=== PATIENT | female | born 1975 ===

== ENCOUNTER 2018-07-05 12:35 | Emergency (ER) | payer OTHER ==
[2018-07-05 13:03] LABS: #Eosinphils 0.3 thou/uL (0.0-0.7); #Lymphocytes 1.8 thou/uL (1.20-3.40); #Monocytes 0.3 thou/uL (0.11-0.59); #Neutrophils 1.8 thou/uL (1.40-6.50); %Basophils 1.2 % (0.0-1.0); %Eosinophils 6.2 % (0.0-10.0); %Lymphocytes 44.3 % (21.0-51.0); %Neutrophils 42.4 % (42.0-75.0); Hemoglobin 7.6 g/dL (12.0-16.0); Mean Corpuscular HGB CONC 32.6 g/dL (32.0-36.0); Mean Corpuscular Hemoglobin 28.4 pg (27.0-31.0); Mean Corpuscular Volume 87.2 fL (78.0-98.0); Mean Platelet Volume 7.3 fL (7.4-10.4); Platelet Count 321 thou/uL (130-400); RBC Distribution Width 14.8 % (11.5-14.5); Red Blood Cell (RBC) Count 2.68 mill/uL (4.20-5.40); White Blood Cell (WBC) Count 4.2 thou/uL (4.8-10.8)
[2018-07-05 13:25] LABS: ALT (SGPT) 41 U/L (8-55); AST (SGOT) 31 U/L (5-34); Alkaline Phosphatase 69 U/L (40-150); Anion Gap 12 mmol/L (10-20); BUN (Urea Nitrogen) 7 mg/dL (7.0-18.7); Bilirubin, Total 0.3 mg/dL (0.2-1.2); Calc. Creatinine Clearance 0 mL/min (70-130); Calcium 8.8 mg/dL (7.8-10.44); Carbon Dioxide 24 mmol/L (22-29); Chloride 109 mmol/L (98-107); Estimated GFR-MDRD 80; Globulin 2.9 g/dL (2.4-3.5); Glucose 78 mg/dL (70-105); Potassium 4.1 mmol/L (3.5-5.1); Protein, Total 6.9 g/dL (6.0-8.3); Sodium 141 mmol/L (136-145)
[2018-07-05 13:35] LABS: BHCG - Serum Negative (NEGATIVE); Pregs Control Background? CLEAR/WHITE (CLR/WHITE); Pregs Control Bar Appear? YES (CONTROL BAR)
--- NOTE | 2018-07-05 13:55 | CT ---
CT BRAIN WITHOUT CONTRAST: History: Altered mental status, seizures. FINDINGS: No evidence of infarct, hemorrhage, midline shift, or abnormal extraaxial fluid collections are seen. Ventricular size is normal and evaluation is patent. The bony calvarium is intact. There is mucosal disease in the paranasal sinuses. IMPRESSION: No CT evidence of acute intracranial process. POS: OFF
[2018-07-05 14:16] LABS: Pregnancy Test - Urine (BHCG) Negative (Negative); Pregu Control Background? CLEAR/WHITE (CLR/WHITE); Pregu Control Bar Appear? YES (CONTROL BAR); Specific Gravity 1.006 (1.002-1.036)
[2018-07-05 14:20] LABS: Carbamazepine-Tegretol 7.6 ug/mL (4.0-12.0)
[2018-07-05] MEDS ORDERED: Ketorolac Tromethamine 30 MG/ML VIAL ONE (14:34)
== END 2018-07-05 15:03 | disposition home or self-care (01) ==
LOC: ERS 12:35
DX: R56.9 Unspecified convulsions (principal); D64.9 Anemia, unspecified; N93.8 Other specified abnormal uterine and vaginal bleeding; I10 Essential (primary) hypertension; Z79.899 Other long term (current) drug therapy; Z79.82 Long term (current) use of aspirin
CPT/HCPCS: 36415; 70450; 80053; 80156; 81025; 84703; 85025; 86850; 86900; 86901; 96374; J1885

== ENCOUNTER 2018-09-23 15:56 | Inpatient (IN) | payer OTHER ==
[~2018-09-23 15:56] MED LIST: Iopamidol 370 76% 100 ML VIAL ONE
[2018-09-23 16:58] LABS: #Eosinphils 0.1 thou/uL (0.0-0.7); #Lymphocytes 1.7 thou/uL (1.20-3.40); #Monocytes 0.6 thou/uL (0.11-0.59); %Basophils 0.4 % (0.0-1.0); %Lymphocytes 30.7 % (21.0-51.0); %Monocytes 11.7 % (0.0-10.0); %Neutrophils 55.2 % (42.0-75.0); Hemoglobin 12.6 g/dL (12.0-16.0); Mean Corpuscular HGB CONC 29.9 g/dL (32.0-36.0); Mean Corpuscular Hemoglobin 26.3 pg (27.0-31.0); Mean Corpuscular Volume 88.1 fL (78.0-98.0); Mean Platelet Volume 7.1 fL (7.4-10.4); Platelet Count 165 thou/uL (130-400); RBC Distribution Width 25.4 % (11.5-14.5); Red Blood Cell (RBC) Count 4.78 mill/uL (4.20-5.40); White Blood Cell (WBC) Count 5.5 thou/uL (4.8-10.8)
[2018-09-23 17:00] LABS: INR-International Normal Ratio 1.7; PTT 34.8 SEC (22.9-36.1); Prothrombin Time 19.8 SEC (12.0-14.7)
[2018-09-23 17:15] LABS: ALT (SGPT) 611 U/L (8-55); AST (SGOT) 453 U/L (5-34); Albumin 3.4 g/dL (3.5-5.0); Alkaline Phosphatase 196 U/L (40-150); Anion Gap 11 mmol/L (10-20); Anisocytosis MODERATE=16-30 cells (100X) (0-5/hpf); BUN (Urea Nitrogen) 5 mg/dL (7.0-18.7); Bilirubin, Total 5.3 mg/dL (0.2-1.2); CK (CPK) 114 U/L (29-168); Calc. Creatinine Clearance 0 mL/min (70-130); Calcium 8.9 mg/dL (7.8-10.44); Carbon Dioxide 27 mmol/L (22-29); Chloride 104 mmol/L (98-107); Estimated GFR-MDRD 78; Globulin 3.6 g/dL (2.4-3.5); Glucose 97 mg/dL (70-105); Hypochromia SLIGHT = 6-15 cells (100X) (0-5/hpf); Lipase 58 U/L (8-78); MDiff Complete? YES; Ovalocytes SLIGHT = 2-5 cells (100X) (0-1/hpf); PLT Morphology Comment Appears Adequate; Poikilocytosis SLIGHT = 6-15 cells (100X) (0-5/hpf); Potassium 3.8 mmol/L (3.5-5.1); Schistocytes SLIGHT = 2-5 cells (100X) (0-1/hpf); Sodium 138 mmol/L (136-145); Target Cells SLIGHT = 2-5 cells (100X) (0-1/hpf)
[2018-09-23 17:19] LABS: ALT (SGPT) 587 U/L (8-55); AST (SGOT) 459 U/L (5-34); Albumin 3.4 g/dL (3.5-5.0); Alkaline Phosphatase 197 U/L (40-150); Bilirubin, Direct 3.3 mg/dL (0.1-0.3); Bilirubin, Total 5.2 mg/dL (0.2-1.2)
[2018-09-23 17:29] LABS: Bilirubin Moderate (Negative); Blood, Urine Negative (Negative); Clarity CLOUDY (Clear); Glucose, Urine (Dipstick) 100 mg/dL (Negative); Leukocyte Small (Negative); Nitrite Negative (Negative); Protein, Urine (Dipstick) Negative (Neg-Trace); Specific Gravity, Urine 1.025 (1.002-1.036)
[2018-09-23 17:35] LABS: Yeast-AUWi Flag 56.1 (0-25.0)
[2018-09-23 17:45] LABS: Hyaline Casts/LPF 0-3 HYALINE CAST LPF (0-3 Hyaline); Other Casts/LPF None Seen LPF (0-3 Hyaline); RBC/HPF 0-3 HPF (0-3)
[2018-09-23 17:46] LABS: Bacteria/HPF Rare-Few HPF (None Seen)
[2018-09-23] MEDS ORDERED: Ketorolac Tromethamine 30 MG/ML VIAL ONE (20:15)
--- NOTE | 2018-09-23 20:33 | CT ---
CONTRAST ENHANCED CT IMAGES ABDOMEN AND PELVIS 09/23/18 HISTORY: Elevated liver enzymes. Abdominal pain. Contrast enhanced CT images of the abdomen and pelvis is obtained. Unfortunately, oral contrast was n ot given. This does decrease the sensitivity for detection of pathology. The lung bases are unremarkable. No evidence of free intraperitoneal air seen. A small amount of ascites is seen. The gallbladder has been surgically removed. The liver and spleen are unremarkable. The pancreas is unremarkable. Adrenal glands and kidneys are unremarkable. No dilated loops of small bowel or colon seen. A normal appendix is visualized. A small amount of free pelvic fluid also seen. IMPRESSION: Small amount of intraperitoneal fluid. POS: [facility]
[2018-09-23] MEDS ORDERED: Ondansetron ODT 4 MG TAB PO PRN (22:06)
[2018-09-23] MEDS ORDERED: hydrALAZINE 20 MG/ML VIAL SLOW IVP PRN (22:06)
[2018-09-23] MEDS ORDERED: Ondansetron PF 4 MG/2 ML Vial IVP PRN (22:06)
[2018-09-23] MEDS ORDERED: cloNIDine 0.1 MG TAB PO PRN (22:06)
[2018-09-23 22:50] VITALS: BMI 30.9
[2018-09-23] MEDS: Sodium Chloride 0.9% 1,000 ML IV SCH (23:41)
--- NOTE | 2018-09-24 02:05 | HP ---
DATE OF ADMISSION: 09/23/2018 PRIMARY CARE PHYSICIAN: [facility]. CHIEF COMPLAINT: Fatigue, weakness, and elevated liver tests. HISTORY OF PRESENT ILLNESS: This is a 42-year-old female who presents to [facility] Emergency Department in transfer from the [facility] complaining of generalized weakness, nause a, abdominal pain, and jaundice over the last 3 weeks. Patient noted intermittent symptoms of nausea with some emesis, vague abdominal pain, and worsening fatigue. [facility] noting transaminitis. Patient states she was taking Tegretol for history of seizure s. At which point, this was being held in an attempt to stabilize her liver function test. Patient states she has also had other medications held for approximately 1 week to identify the underlying cu lprit to her transaminitis. Patient denies any prior history of liver disease, hepatitis, or exposur e history. Patient denies any recent surgical intervention, history of gallstones, or cholecystitis. Patient states her bowel movements have been regular without dysuria. Patient denies any specific fever, chills, recent trauma, or injury. Patient denies any history of alcohol abuse. In the emerge ncy room, patient underwent metabolic screening showing evidence of transaminitis with AST ranging in the 450s and ALT in the 600s. Patient was also noted with elevated ammonia level of 100. Patient r eceived normal saline x1 liter in addition to lactulose 30 mL x1 dose. Patient was treated with lact ulose 30 mL x1 dose. PAST MEDICAL HISTORY: 1. Hyperlipidemia. 2. Seizure disorder. 3. Astigmatism. 4. Hypertension. 5. Irritable bowel syndrome. 6. Abnormal uterine bleeding. 7. Iron-deficiency anemia. PAST SURGICAL HISTORY: Status post bladder stone ablation with laser. CURRENT MEDICATIONS: 1. Amlodipine 10 mg 1 tab p.o. daily. 2. Aspirin 81 mg 1 tab p.o. daily. 3. Lipitor 10 mg p.o. daily. 4. Ferrous gluconate 324 mg 1 tab p.o. t.i.d. 5. Lisinopril 20 mg 1 tab p.o. daily. 6. Tegretol, dose unknown. ALLERGIES: No known drug allergies. FAMILY HISTORY: No inheritable diseases per patient report. SOCIAL HISTORY: Patient currently incarcerated in jail. No current alcohol, tobacco, or illicit d rug use. REVIEW OF SYSTEMS: The following complete review of systems was otherwise negative, except as stated per HPI: Constitutional: Weight loss or gain, ability to conduct usual activities. Skin: Rash, i tching. Eyes: Double vision, pain. ENT/Mouth: Nose bleeding, neck stiffness, pain, tenderness. C ardiovascular: Palpitations, dyspnea on exertion, orthopnea. Respiratory: Shortness of breath, whe ezing, cough, hemoptysis, fever, or night sweats. Gastrointestinal: Poor appetite, abdominal pain, heartburn, nausea, vomiting, constipation, or diarrhea. Genitourinary: Urgency, frequency, dysuria, nocturia. Musculoskeletal: Pain, swelling. Neurologic/Psychiatric: Anxiety, depression. Allergy /Immunologic: Skin rash, bleeding tendency. PHYSICAL EXAMINATION: VITAL SIGNS: On admission blood pressure 137/87, pulse 67, respiratory rate 18, temperature 98.2 deg madhu Fahrenheit, O2 saturation 99% on room air. GENERAL APPEARANCE: This is a 42-year-old female, alert and oriented x3, pleasant, responsi ve, in no acute distress. HEENT: Pupils are equal, round, and reactive to light and accommodation. Extraocular muscles are in tact. Bilateral scleral icterus noted. Nares patent. OP is clear. Teeth in fair repair. NECK: Supple, no cervical adenopathy, no thyromegaly, no carotid bruits, no JVD appreciated. Cervic al spine with full active and passive range of motion. No meningeal signs appreciated. CHEST: Lungs are clear to auscultation bilaterally. CARDIOVASCULAR: S1, S2, without noted murmur, rub, or gallop. ABDOMEN: Rounded with mild tenderness to palpation in the right upper quadrant. No rebound or guard ing noted. No palpable mass. EXTREMITIES: Warm and dry with fair turgor. No clubbing, cyanosis, or asymmetric edema appreciated. Pulses palpable distally at the dorsalis pedis, posterior tibial, and popliteal arteries bilaterall y. Capillary refill less than 2 seconds. NEUROLOGIC: No asterixis. Cranial nerves II through XII are grossly intact. No focal or lateralizi ng signs appreciated. PERTINENT LABORATORY DATA AND X-RAY FINDINGS: Basic metabolic profile within normal limits. Calcium 8.9, total bilirubin 5.3, AST 53, ALT 611, alkaline phosphatase 196. Serum ammonia level 100, total CK 114. Albumin 3.4, lipase 58. CBC showed a white blood cell count of 5.5, hemoglobin 12.6, hemat ocrit 42, platelet count 165 with normal differential. PT 19.8, INR 1.7, PTT 34.8. Urinalysis posit mariam for bilirubin, small leukocyte esterase. Total cholesterol 171, triglycerides 90, HDL 38, LDL 11 5. Serum iron level 158. TIBC 352, percent saturation 45. Serum ferritin 473. Free T4 of 0.78. T SH 2.30. Hemoglobin A1c 5.1 on 09/22/2018. ASSESSMENT AND PLAN: 1. Transaminitis. Patient will be admitted to the medical floor. Suspect iatrogenic given patient' s history of Tegretol use and fluids with statins. Avoid hepatotoxic agents. Check hepatitis A, B, and C panel. Consult GI service in the a.m. for any further recommendations. Consider right upper q uadrant ultrasound imaging if LFTs continue to trend upward. 2. Hepatic encephalopathy. Mild. Continue lactulose 20 grams p.o. q.i.d. Repeat ammonia level in the a.m. 3. Abdominal pain. Suspect secondary to #1. Continue supportive management and see management plan as outlined in #1. Pain control as clinically indicated. 4. Hypertension. Resume home antihypertensive regimen and monitor serial blood pressures. 5. Seizure disorder. We will need to clarify extent of seizure disorder on previous Tegretol. Jacqueline ent may need additional titration or transition to different agent for long-term management. 6. Prophylaxis. Sequential compression devices while in bed. Pepcid 20 mg p.o. b.i.d. 7. Code status is FULL. Surrogate medical decision maker is [facility].
[2018-09-24 05:08] LABS: ALT (SGPT) 444 U/L (8-55); AST (SGOT) 338 U/L (5-34); Albumin 2.6 g/dL (3.5-5.0); Alkaline Phosphatase 159 U/L (40-150); Anion Gap 7 mmol/L (10-20); BUN (Urea Nitrogen) 6 mg/dL (7.0-18.7); Calc. Creatinine Clearance 132 mL/min (70-130); Calcium 8.2 mg/dL (7.8-10.44); Carbon Dioxide 28 mmol/L (22-29); Chloride 107 mmol/L (98-107); Estimated GFR-MDRD Greater than 90; Globulin 2.8 g/dL (2.4-3.5); Glucose 68 mg/dL (70-105); Potassium 3.7 mmol/L (3.5-5.1); Protein, Total 5.4 g/dL (6.0-8.3); Sodium 138 mmol/L (136-145)
[2018-09-24 05:29] LABS: HBCM Index 0.09 S/CO (0-0.79); HBSAg Index 0.31 S/CO (0-0.99); Hep A IgM AB Non-Reactive (NonReactive); Hep A IgM S/CO 0.17 S/CO (0-0.79); Hep B Surf Ag Non-Reactive S/CO (NonReactive); Hep C IgG Ab Non-Reactive (NonReactive); Hep C Index 0.17 S/CO (0-0.79); Hepatitis B Core IgM Abs Non-Reactive (NonReactive)
[2018-09-24 05:40] LABS: Band 2 % (5-11); Eosinophils 2 % (0-10); Hemoglobin 10.9 g/dL (12.0-16.0); Lymphocytes 33 % (21-51); MDiff Complete? YES; Mean Corpuscular Volume 87.1 fL (78.0-98.0); Mean Platelet Volume 6.2 fL (7.4-10.4); Monocytes 11 % (0-10); Neutrophil 51 % (42-75); Ovalocytes SLIGHT = 2-5 cells (100X) (0-1/hpf); PLT Morphology Comment Appears Adequate; Platelet Count 133 thou/uL (130-400); RBC Distribution Width 25.3 % (11.5-14.5); Red Blood Cell (RBC) Count 4.03 mill/uL (4.20-5.40); Target Cells SLIGHT = 2-5 cells (100X) (0-1/hpf); White Blood Cell (WBC) Count 4.6 thou/uL (4.8-10.8)
[2018-09-24] MEDS: Sodium Chloride 0.9% 1,000 ML IV SCH ×3 (08:31→19:54)
[2018-09-24] MEDS: Famotidine 20 MG TAB PO SCH ×2 (08:32→19:48)
--- NOTE | 2018-09-24 12:33 | CON ---
DATE OF CONSULTATION: 09/24/2018 REASON FOR CONSULTATION: Elevated LFTs. REQUESTING PHYSICIAN: Dr. Mckay. HISTORY OF PRESENT ILLNESS: Ms. Briana Galvan is a 42-year-old woman who is incarcerated. She was sent from [facility] for persistently elevated LFTs as well as symptoms of confusion, nausea, fati magdiel and vague abdominal pain. The patient relates that this has been going on for the past 3 weeks, it all came on fairly suddenly. She denies being on any new medications throughout this time. She d id have a recent flu vaccine and tetanus vaccine just prior to the onset of symptoms. At any rate, s he started having some fatigue, nausea and vague abdominal discomfort and also some episodes of confu marck, mental cloudiness and slurring of speech. At her facility, her LFTs were noted to be elevated. Several of her medications have been held in the past few weeks including her statin and her amlodi pine and then finally her Tegretol. Despite this, LFTs have remained elevated and she has remained s ymptomatic. She denies any prior history of any liver disease. She does relate that she had a laser treatment of some stones, which she thinks were in her gallbladder over 20 years ago, but she is ashly rly certain that her gallbladder was not removed. She has no current or prior history of alcohol abu se. No current or prior history of drug abuse. There has been no fever, no change of bowel habits w ith these symptoms. Upon presentation, her INR was found to be elevated to 1.7, total bilirubin to 5 .3, AST 453, ALT 611, alkaline phosphatase 196 and ammonia level was elevated to 100. Lipase is norm al. CBC and kidney function are essentially unremarkable. A CT of the abdomen and pelvis demonstrat ed a small amount of intraperitoneal fluid, but otherwise normal liver, spleen and pancreas, normal b owel and absent gallbladder. The patient is currently feeling okay, just sleepy. She was started on lactulose 20 grams q.i.d. She denies any acetaminophen use and I do not see any on her medication l ist. REVIEW OF SYSTEMS: Full review of systems including constitutional, head, eyes, ears, nose, throat, GI, , cardiovascular, respiratory, musculoskeletal, and neurologic systems is negative except as no yessica in the HPI. PAST MEDICAL HISTORY: Hyperlipidemia, hypertension, IBS, seizure disorder, abnormal uterine bleeding , iron deficiency anemia, "gallstones treated with the laser", patient does not recall having had a c holecystectomy. ALLERGIES: No known drug allergies. OUTPATIENT MEDICATIONS: Tegretol, lisinopril, ferrous gluconate, Lipitor, aspirin 81 mg daily, amlod ipine. FAMILY HISTORY: Negative for liver disease. SOCIAL HISTORY: No smoking, alcohol, or drug use. She is currently incarcerated. PHYSICAL EXAMINATION: VITAL SIGNS: Temperature 97.9, pulse 63, blood pressure 135/86, 96% oxygen saturation on room air. GENERAL: A 42-year-old woman lying in bed comfortably, in no acute distress. She is somnolent, but easily arousable and can give detailed answers to questions. SKIN: Mild jaundice, no rash visible or palpable. EYES: Mild scleral icterus. Extraocular movements intact. ENT: Mucous membranes moist, no oral lesions. LYMPH: No submandibular, supraclavicular lymphadenopathy. THYROID: Nontender to palpation. HEART: Regular rate and rhythm. LUNGS: Clear to auscultation bilaterally. ABDOMEN: Bowel sounds present, soft, some mild tenderness to palpation of the left upper quadrant, b ut no guarding or rebound tenderness. EXTREMITIES: No peripheral edema. VESSELS: Radial pulses 2+ bilaterally. NEUROLOGICAL: Cranial nerves II through XII intact bilaterally. LABORATORY STUDIES: WBC 4.6, hemoglobin 10.9, platelets 133. INR 1.7, BUN 6, creatinine 0.70. Tota l bilirubin initially 5.3, now down to 4.0, alkaline phosphatase initially 196, now down to 159, AST initially 453, now down to 338, ALT initially 611, now down to 444, albumin initially 3.4, now down t o 2.6. Ammonia 100, lipase 58. Urinalysis shows only 4-6 wbc's. Acute hepatitis panel is negative for hepatitis A, hepatitis B surface antigen and hepatitis B core IgM antibody and hepatitis C antibo dy. IMAGING STUDIES: CT of the abdomen and pelvis showed a small amount of intraperitoneal fluid, absent gallbladder, normal appearing liver, spleen and pancreas, normal bowel. ASSESSMENT AND PLAN: 1. Acute hepatitis, over the past 3 weeks. 2. Hepatic encephalopathy, mild. The patient has what appears to be acute hepatitis, primarily with hepatocellular pattern, but significant elevations in total bilirubin and concerningly also elevated INR. This is in the absence of any alcohol or acetaminophen use or drug use that she is reporting. Drug-induced liver injury would certainly lead the differential and I agree with holding her statin and her Tegretol at this time, also need to consider autoimmune hepatitis, hemochromatosis, Mateusz's disease, etc. I have ordered several further labs including CORBY, ASMA, AMA, iron studies, ceruloplas min, hepatitis B DNA and hepatitis C RNA, and acetaminophen level. We will also order urine drug scr een. Trend LFTs and INR daily. If the labs are all unrevealing and LFTs do not improve, the patient may need a liver biopsy. In the meantime, continue with supportive care. Agree with the initiation of lactulose. She can have a regular diet. We will also get an abdominal ultrasound just to assure no biliary dilation, assure absence of the gallbladder. Thank you for the consultation. GI will follow along. Please call any time with questions or concer ns.
[2018-09-24 13:14] LABS: Acetaminophen Less than 6.0 mcg/mL (10.0-30.0); Iron Binding Capacity, Total 308 mcg/dL (265-497)
[2018-09-24 13:15] LABS: Iron Less than 8 ug/dL (50-170)
[2018-09-24 13:22] LABS: MONO NEGATIVE CONTROL ZONE White (Negative) (White); MONO POSITIVE CONTROL Pink Line (Positive) (PINK/RED); Mononucleosis NEGATIVE (NEGATIVE)
[2018-09-24 13:31] LABS: Amphetamine Not Detected (NotDetected); Barbiturates Screen Not Detected (NotDetected); Benzodiazepine Screen Not Detected (NotDetected); Cocaine Metabolite Screen Not Detected (NotDetected); Medtox Control Line Valid? VALID (VALID); Medtox Reader # READER 1; Methadone Not Detected (NotDetected); Methamphetamine Not Detected (NotDetected); Opiate Screen Not Detected (NotDetected); Oxycodone Screen Not Detected (NotDetected); Phencyclidine (PCP) Not Detected (NotDetected); THC/Cannabinoid Screen Not Detected (NotDetected); Tricyclic Screen Not Detected (NotDetected)
--- NOTE | 2018-09-24 13:32 | PDOC.PN ---
- Subjective Encounter Start Date: 09/24/18 Encounter Start Time: 09:40 Pt seen for followup re: abnormal LFTs. Denies chest pain, shortness of breath , fevers or chills. - Objective Resuscitation Status: Resuscitation Status FULL:Full Resuscitation MAR Reviewed: Yes Vital Signs & Weight: Vital Signs (12 hours) Temp Pulse Resp BP Pulse Ox 09/24/18 07:39 97.9 F 63 16 135/86 96 09/24/18 04:00 97.8 F 60 18 136/90 96 Weight Weight 180 lb 6 oz Result Diagrams: 09/24/18 04:37 09/24/18 04:37 Additional Labs: labs reviewed by me Phys Exam - Physical Examination Constitutional: NAD HEENT: moist MMs, oral pharynx no lesions, 2+ tonsils scleral icterus Neck: no nodes, no JVD, supple, full ROM Respiratory: no wheezing, no rales, no rhonchi, clear to auscultation bilateral Cardiovascular: RRR, no rub S1, s2 Gastrointestinal: soft, non-tender, no distention, positive bowel sounds Neurological: moves all 4 limbs Psychiatric: normal affect Deviation from normal: Oriented to person and place, not to time Dx/Plan (1) Abnormal LFTs Code(s): R94.5 - ABNORMAL RESULTS OF LIVER FUNCTION STUDIES Status: Acute Comment: Improving, statin and tegretol on hold (2) Acute hepatitis Code(s): B17.9 - ACUTE VIRAL HEPATITIS, UNSPECIFIED Status: Acute Comment: Etiology unclear, infectious vs. noninfectious, workup initiated, statin and tegretol on hold (3) Hepatic encephalopathy Code(s): K72.90 - HEPATIC FAILURE, UNSPECIFIED WITHOUT COMA Status: Acute Comment: continue lactulose (4) HTN (hypertension) Code(s): I10 - ESSENTIAL (PRIMARY) HYPERTENSION Status: Chronic Comment: controlled (5) Dyslipidemia Code(s): E78.5 - HYPERLIPIDEMIA, UNSPECIFIED Status: Chronic Comment: statin on hold - Plan * . Review of Systems - Review of Systems Constitutional: negative: fever, chills, sweats, weakness, malaise Respiratory: negative: Cough, Shortness of Breath, SOB with Excertion, Pleuritic Pain, Wheezing Cardiovascular: negative: chest pain, palpitations, orthopnea, paroxysmal nocturnal dyspnea, edema, light headedness Gastrointestinal: negative: Nausea, Vomiting, Abdominal Pain, Diarrhea, Constipation, Melena, Hematochezia Genitourinary: negative: Dysuria, Frequency, Incontinence, Hematuria, Retention Skin: Gordon - Medications/Allergies Allergies/Adverse Reactions: Allergies Allergy/AdvReac Type Severity Reaction Status Date / Time No Known Allergies Allergy Verified 09/23/18 22:07 Medications: Current Medications Clonidine (Catapres) 0.1 mg PO Q4H PRN PRN Reason: SBP > ____ Famotidine (Pepcid) 20 mg PO BID [facility] Last Admin: 09/24/18 08:32 Dose: 20 mg Hydralazine HCl (Apresoline) 10 mg SLOW IVP Q4H PRN PRN Reason: SBP > 180 and HR < 70 Sodium Chloride (Normal Saline 0.9%) 1,000 mls @ 100 mls/hr IV .Q10H [facility] Last Admin: 09/24/18 08:31 Dose: 1,000 mls Ibuprofen (Motrin) 400 mg PO Q4H PRN PRN Reason: Fever > 101 Lactulose (Lactulose) 20 gm PO QID [facility] Last Admin: 09/24/18 08:32 Dose: 20 gm Ondansetron HCl (Zofran Odt) 4 mg PO Q6H PRN PRN Reason: Nausea/Vomiting Ondansetron HCl (Zofran) 4 mg IVP Q6H PRN PRN Reason: Nausea/Vomiting Last Admin: 09/24/18 08:32 Dose: 4 mg
--- NOTE | 2018-09-24 16:20 | ULT ---
ABDOMINAL ULTRASOUND: 09/24/18 HISTORY: Elevated LFTs. Real time imaging of the upper abdomen was performed. This shows the gallbladder to have been remove d. Common duct is 4 mm. The visualized liver parenchyma shows no focal abnormalities. It measures 12 to 13 cm in length. Small amount of ascites is incidentally seen. The spleen measures 12.1 cm. the ec hotexture of the liver is heterogeneous. Right and left kidneys are normal in size and not obstructed. The pancreas is partially obscured. The abdominal aorta and IVC regions are unremarkable. IMPRESSION: 1. Heterogeneous echotexture to the liver without focal discrete mass. 2. Postop cholecystectomy change. POS: [facility]
[2018-09-24] MEDS: Ibuprofen 200 MG TAB PO PRN (19:53)
[2018-09-25] MEDS: Sodium Chloride 0.9% 1,000 ML IV SCH ×2 (04:37→17:27)
[2018-09-25 04:41] LABS: #Basophils 0.1 thou/uL (0.0-0.2); #Eosinphils 0.3 thou/uL (0.0-0.7); #Lymphocytes 1.8 thou/uL (1.20-3.40); #Monocytes 0.4 thou/uL (0.11-0.59); %Basophils 1.2 % (0.0-1.0); %Eosinophils 6.6 % (0.0-10.0); %Lymphocytes 39.8 % (21.0-51.0); %Monocytes 8.6 % (0.0-10.0); %Neutrophils 43.8 % (42.0-75.0); Hemoglobin 10.9 g/dL (12.0-16.0); Mean Corpuscular HGB CONC 30.5 g/dL (32.0-36.0); Mean Corpuscular Hemoglobin 26.7 pg (27.0-31.0); Mean Corpuscular Volume 87.4 fL (78.0-98.0); Mean Platelet Volume 8.2 fL (7.4-10.4); Platelet Count 124 thou/uL (130-400); RBC Distribution Width 25.8 % (11.5-14.5); White Blood Cell (WBC) Count 4.5 thou/uL (4.8-10.8)
[2018-09-25 04:44] LABS: INR-International Normal Ratio 2.1; Prothrombin Time 23.2 SEC (12.0-14.7)
[2018-09-25 05:07] LABS: ALT (SGPT) 424 U/L (8-55); AST (SGOT) 343 U/L (5-34); Albumin 2.4 g/dL (3.5-5.0); Alkaline Phosphatase 157 U/L (40-150); Anion Gap 12 mmol/L (10-20); BUN (Urea Nitrogen) 5 mg/dL (7.0-18.7); Bilirubin, Total 4.3 mg/dL (0.2-1.2); Calc. Creatinine Clearance 131 mL/min (70-130); Calcium 7.9 mg/dL (7.8-10.44); Carbon Dioxide 21 mmol/L (22-29); Chloride 110 mmol/L (98-107); Estimated GFR-MDRD 89; Globulin 2.9 g/dL (2.4-3.5); Glucose 65 mg/dL (70-105); Potassium 4.1 mmol/L (3.5-5.1); Protein, Total 5.3 g/dL (6.0-8.3); Sodium 139 mmol/L (136-145)
[2018-09-25] MEDS: Ibuprofen 200 MG TAB PO PRN (07:24)
[2018-09-25] MEDS: Famotidine 20 MG TAB PO SCH ×2 (08:04→20:50)
--- NOTE | 2018-09-25 11:24 | PRG ---
DATE OF SERVICE: 09/25/2018 GI INPATIENT DAILY PROGRESS NOTE SUBJECTIVE: Ms. Galvan is feeling okay. She is tolerating her diet. She does remain fatigued and is still sleeping late this morning. OBJECTIVE: VITAL SIGNS: Temperature 97.8, pulse 59, blood pressure 145/88, 95% oxygen saturation on room air. GENERAL: No acute distress. HEART: Regular rate and rhythm. LUNGS: Clear to auscultation bilaterally. ABDOMEN: Nondistended. Bowel sounds are present. She still expresses tenderness to palpation in th e left upper quadrant. No guarding or rebound tenderness. EXTREMITIES: No peripheral edema. LABORATORY STUDIES: WBC 4.5, hemoglobin 10.9, platelets 124,000. INR went up from 1.7 to 2.1, total bilirubin slightly up to 4.3, alkaline phosphatase stable at 157, AST slightly up to 343, ALT slight ly down to 424, albumin 2.4. Urine drug screen was negative. Serum acetaminophen level was undetect able. Serum total IgG is 1536. Upson screen is negative. Acute viral hepatitis serology is negative . Ferritin level normal at 237.05, TIBC 308. Still awaiting other labs including CORBY, ASMA, antimit ochondrial antibody, alpha 1 antitrypsin level, ceruloplasmin and hepatitis B and C PCR. ASSESSMENT AND PLAN: 1. Acute hepatitis, unclear etiology. 2. Hepatic encephalopathy, mild. We are still awaiting results of further labs still pending. I am a bit concerned that her INR has climbed to 2.1. If the liver tests are not trending down in the ne xt couple of days and labs are otherwise unrevealing, I suspect she will need a liver biopsy and we m ight consider starting her empirically on steroids as well. GI will continue to follow along.
--- NOTE | 2018-09-25 12:18 | PDOC.PN ---
- Subjective Encounter Start Date: 09/25/18 Encounter Start Time: 09:40 Pt seen for followup re: abnormal LFTs. Feels better. Reports itchy rash over chest. - Objective Resuscitation Status: Resuscitation Status FULL:Full Resuscitation MAR Reviewed: Yes Vital Signs & Weight: Vital Signs (12 hours) Temp Pulse Resp BP Pulse Ox 09/25/18 11:27 97.9 F 62 18 158/96 H 94 L 09/25/18 07:36 97.8 F 59 L 16 145/88 H 95 09/25/18 05:39 98 F 55 L 16 126/81 96 Weight Admit Weight 180 lb 6 oz Weight 180 lb 6 oz I&O: 09/24/18 09/25/18 09/26/18 07:59 06:59 06:59 Intake Total 1000 Balance 1000 Result Diagrams: 09/25/18 04:05 09/25/18 04:05 Additional Labs: labs reviewed by me Phys Exam - Physical Examination Constitutional: NAD HEENT: moist MMs, oral pharynx no lesions, 2+ tonsils sclerae icteric Neck: no nodes, no JVD, supple, full ROM Respiratory: no wheezing, no rales, no rhonchi, clear to auscultation bilateral Cardiovascular: RRR, no rub S1, s2 Gastrointestinal: soft, non-tender, no distention, positive bowel sounds Neurological: moves all 4 limbs Psychiatric: normal affect, A&O x 3 Dx/Plan (1) Abnormal LFTs Code(s): R94.5 - ABNORMAL RESULTS OF LIVER FUNCTION STUDIES Status: Acute Comment: stable, statin and tegretol on hold (2) Acute hepatitis Code(s): B17.9 - ACUTE VIRAL HEPATITIS, UNSPECIFIED Status: Acute Comment: workup in progress. (3) Hepatic encephalopathy Code(s): K72.90 - HEPATIC FAILURE, UNSPECIFIED WITHOUT COMA Status: Acute Comment: on lactulose (4) Rash Code(s): R21 - RASH AND OTHER NONSPECIFIC SKIN ERUPTION Status: Acute Comment: probable allergic reaction, start PRN Benadryl (5) Iron deficiency Code(s): E61.1 - IRON DEFICIENCY Status: Acute Comment: start iron replacement (6) HTN (hypertension) Code(s): I10 - ESSENTIAL (PRIMARY) HYPERTENSION Status: Chronic Comment: controlled (7) Dyslipidemia Code(s): E78.5 - HYPERLIPIDEMIA, UNSPECIFIED Status: Chronic Comment: continue to hold statin - Plan * . Review of Systems - Review of Systems Constitutional: negative: fever, chills, sweats, weakness, malaise Cardiovascular: other. negative: chest pain, palpitations, orthopnea, paroxysmal nocturnal dyspnea, edema, light headedness Gastrointestinal: negative: Nausea, Vomiting, Abdominal Pain, Diarrhea, Constipation, Melena, Hematochezia Genitourinary: negative: Dysuria, Frequency, Incontinence, Hematuria, Retention Skin: Rash. negative: Lesions, Gordon, Bruising - Medications/Allergies Allergies/Adverse Reactions: Allergies Allergy/AdvReac Type Severity Reaction Status Date / Time No Known Allergies Allergy Verified 09/23/18 22:07 Medications: Current Medications Clonidine (Catapres) 0.1 mg PO Q4H PRN PRN Reason: SBP > ____ Famotidine (Pepcid) 20 mg PO BID [facility] Last Admin: 09/25/18 08:04 Dose: 20 mg Hydralazine HCl (Apresoline) 10 mg SLOW IVP Q4H PRN PRN Reason: SBP > 180 and HR < 70 Sodium Chloride (Normal Saline 0.9%) 1,000 mls @ 100 mls/hr IV .Q10H [facility] Last Admin: 09/25/18 04:37 Dose: 1,000 mls Ibuprofen (Motrin) 400 mg PO Q4H PRN PRN Reason: Fever > 101 Last Admin: 09/25/18 07:24 Dose: 400 mg Lactulose (Lactulose) 20 gm PO QID [facility] Last Admin: 09/25/18 08:05 Dose: 20 gm Ondansetron HCl (Zofran Odt) 4 mg PO Q6H PRN PRN Reason: Nausea/Vomiting Ondansetron HCl (Zofran) 4 mg IVP Q6H PRN PRN Reason: Nausea/Vomiting Last Admin: 09/24/18 08:32 Dose: 4 mg
[2018-09-25] MEDS ORDERED: diphenhydrAMINE 50 MG/ML VIAL IVP PRN (12:27)
[2018-09-25] MEDS ORDERED: Iron, Sodium Ferric Gluconate 125 MG in Sodium Chloride 0.9% 100 ML IVPB SCH (12:30)
[2018-09-25] MEDS ORDERED: IRON SUCROSE COMPLEX 100 MG/5 ML SLOW IVP SCH (12:30)
[2018-09-25] MEDS: Ferrous Sulfate 325 MG TAB PO SCH (17:26)
[2018-09-26] MEDS: Sodium Chloride 0.9% 1,000 ML IV SCH ×4 (03:34→20:59)
[2018-09-26] MEDS: Ibuprofen 200 MG TAB PO PRN ×3 (03:38→13:29)
[2018-09-26 05:19] LABS: #Basophils 0.1 thou/uL (0.0-0.2); #Eosinphils 0.2 thou/uL (0.0-0.7); #Lymphocytes 1.8 thou/uL (1.20-3.40); #Monocytes 0.6 thou/uL (0.11-0.59); #Neutrophils 2.5 thou/uL (1.40-6.50); %Basophils 1.6 % (0.0-1.0); %Eosinophils 4.7 % (0.0-10.0); %Lymphocytes 35.3 % (21.0-51.0); %Monocytes 10.6 % (0.0-10.0); %Neutrophils 47.9 % (42.0-75.0); Hemoglobin 10.7 g/dL (12.0-16.0); Mean Corpuscular HGB CONC 30.2 g/dL (32.0-36.0); Mean Corpuscular Hemoglobin 26.8 pg (27.0-31.0); Mean Corpuscular Volume 88.5 fL (78.0-98.0); Mean Platelet Volume 7.7 fL (7.4-10.4); Platelet Count 132 thou/uL (130-400); Prothrombin Time 22.8 SEC (12.0-14.7); RBC Distribution Width 26.3 % (11.5-14.5); White Blood Cell (WBC) Count 5.2 thou/uL (4.8-10.8)
[2018-09-26 05:26] LABS: ALT (SGPT) 405 U/L (8-55); AST (SGOT) 316 U/L (5-34); Albumin 2.4 g/dL (3.5-5.0); Alkaline Phosphatase 175 U/L (40-150); Anion Gap 7 mmol/L (10-20); BUN (Urea Nitrogen) 7 mg/dL (7.0-18.7); Bilirubin, Total 4.7 mg/dL (0.2-1.2); Calc. Creatinine Clearance 129 mL/min (70-130); Calcium 7.8 mg/dL (7.8-10.44); Carbon Dioxide 25 mmol/L (22-29); Chloride 109 mmol/L (98-107); Estimated GFR-MDRD 88; Globulin 2.6 g/dL (2.4-3.5); Glucose 90 mg/dL (70-105); Potassium 3.6 mmol/L (3.5-5.1); Sodium 137 mmol/L (136-145)
--- NOTE | 2018-09-26 08:09 | PRG ---
DATE OF SERVICE: 09/26/2018 SUBJECTIVE: Ms. Galvan was able to sleep okay last night. She does complain of continued upper abdom inal pain, no nausea or vomiting. No other complaints. PHYSICAL EXAMINATION: VITAL SIGNS: Temperature 97.8, pulse 55, blood pressure 138/83, 95% oxygen saturation on room air. GENERAL: No acute distress. HEART: Regular rate and rhythm. LUNGS: Clear to auscultation bilaterally. ABDOMEN: Nondistended. Bowel sounds present, soft, tender to palpation in the right upper quadrant and left upper quadrant. No guarding or rebound tenderness. EXTREMITIES: No peripheral edema. LABORATORY STUDIES: WBC 5.2, hemoglobin 10.7, platelets 132. INR is stable at 2.0. Total bilirubin up to 4.7, alkaline phosphatase up to 175, AST marginally down to 316, ALT marginally down to 405. CORBY, SMA, AMA, ceruloplasmin, hepatitis B DNA and hepatitis C RNA are all still pending. ASSESSMENT AND PLAN: 1. Acute hepatitis, unknown etiology. 2. Hepatic encephalopathy, mild, now well controlled. We are still awaiting results of the autoimmune markers and other labs listed. Thankfully, the INR d id not continue to rise from yesterday. Our main concern is for possibility of autoimmune hepatitis. If further labs are unrevealing when they return, and LFTs have not significantly improved by then, we will need to get a liver biopsy. Otherwise, continue current supportive care.
[2018-09-26] MEDS: Famotidine 20 MG TAB PO SCH ×2 (08:31→20:57)
[2018-09-26] MEDS: Ferrous Sulfate 325 MG TAB PO SCH ×2 (08:31→16:31)
--- NOTE | 2018-09-26 15:27 | PDOC.PN ---
- Subjective Encounter Start Date: 09/26/18 Encounter Start Time: 11:00 Pt seen for followup re: abnormal LFTs. Denies chest pain or shortness of breath. - Objective Resuscitation Status: Resuscitation Status FULL:Full Resuscitation MAR Reviewed: Yes Vital Signs & Weight: Vital Signs (12 hours) Temp Pulse Resp BP Pulse Ox 09/26/18 08:00 95 09/26/18 07:47 97.8 F 55 L 18 138/83 95 Weight Admit Weight 180 lb 6 oz Weight 180 lb 6 oz I&O: 09/25/18 09/26/18 09/27/18 06:59 06:59 06:59 Intake Total 3005 1300 Output Total 550 100 Balance 2455 1200 Result Diagrams: 09/26/18 04:05 09/26/18 04:05 Additional Labs: Accuchecks 09/26/18 09/26/18 09/25/18 12:08 04:20 20:13 POC Glucose 61 L 79 89 Labs reviewed by me Phys Exam - Physical Examination Obese HEENT: moist MMs scleral icterus Neck: no nodes, no JVD, supple, full ROM Respiratory: clear to auscultation bilateral Cardiovascular: RRR, no rub S1, S2 Gastrointestinal: soft, non-tender, no distention, positive bowel sounds Neurological: moves all 4 limbs Psychiatric: normal affect, A&O x 3 Dx/Plan (1) Abnormal LFTs Code(s): R94.5 - ABNORMAL RESULTS OF LIVER FUNCTION STUDIES Status: Acute Comment: statin and tegretol on hold, continue to follow LFTs. Workup in progress. (2) Hepatic encephalopathy Code(s): K72.90 - HEPATIC FAILURE, UNSPECIFIED WITHOUT COMA Status: Acute Comment: continue lactulose (3) Rash Code(s): R21 - RASH AND OTHER NONSPECIFIC SKIN ERUPTION Status: Acute Comment: Improved (4) Iron deficiency Code(s): E61.1 - IRON DEFICIENCY Status: Acute Comment: on iron replacement (5) HTN (hypertension) Code(s): I10 - ESSENTIAL (PRIMARY) HYPERTENSION Status: Chronic Comment: controlled (6) Dyslipidemia Code(s): E78.5 - HYPERLIPIDEMIA, UNSPECIFIED Status: Chronic Comment: hold statin - Plan * . Review of Systems - Review of Systems Constitutional: negative: fever, chills, sweats, weakness, malaise Respiratory: negative: Cough, Shortness of Breath, SOB with Excertion, Pleuritic Pain, Wheezing Cardiovascular: negative: chest pain, palpitations, orthopnea, paroxysmal nocturnal dyspnea, edema, light headedness Gastrointestinal: negative: Nausea, Vomiting, Abdominal Pain, Diarrhea, Constipation, Melena, Hematochezia Genitourinary: negative: Dysuria, Frequency, Incontinence, Hematuria, Retention Musculoskeletal: negative: Neck Pain, Shoulder Pain, Arm Pain, Back Pain, Hand Pain, Leg Pain, Foot Pain - Medications/Allergies Allergies/Adverse Reactions: Allergies Allergy/AdvReac Type Severity Reaction Status Date / Time No Known Allergies Allergy Verified 09/23/18 22:07 Medications: Current Medications Clonidine (Catapres) 0.1 mg PO Q4H PRN PRN Reason: SBP > ____ Diphenhydramine HCl (Benadryl) 25 mg IVP Q8H PRN PRN Reason: Itching Famotidine (Pepcid) 20 mg PO BID [facility] Last Admin: 09/26/18 08:31 Dose: 20 mg Ferrous Sulfate (Feosol) 325 mg PO BID-[facility] Last Admin: 09/26/18 08:31 Dose: 325 mg Hydralazine HCl (Apresoline) 10 mg SLOW IVP Q4H PRN PRN Reason: SBP > 180 and HR < 70 Sodium Chloride (Normal Saline 0.9%) 1,000 mls @ 100 mls/hr IV .Q10H [facility] Last Admin: 09/26/18 13:29 Dose: 1,000 mls Ibuprofen (Motrin) 400 mg PO Q4H PRN PRN Reason: Fever > 101 Last Admin: 09/26/18 13:29 Dose: 400 mg Lactulose (Lactulose) 20 gm PO QID [facility] Last Admin: 09/26/18 13:29 Dose: 20 gm Ondansetron HCl (Zofran Odt) 4 mg PO Q6H PRN PRN Reason: Nausea/Vomiting Ondansetron HCl (Zofran) 4 mg IVP Q6H PRN PRN Reason: Nausea/Vomiting Last Admin: 09/24/18 08:32 Dose: 4 mg Sodium Chloride (Flush - Normal Saline) 10 ml IVF Q12HR [facility] Last Admin: 09/26/18 08:32 Dose: Not Given Sodium Chloride (Flush - Normal Saline) 10 ml IVF PRN PRN PRN Reason: Saline Flush
[2018-09-27 05:00] LABS: INR-International Normal Ratio 2.1; Prothrombin Time 23.4 SEC (12.0-14.7)
[2018-09-27 05:11] LABS: ALT (SGPT) 387 U/L (8-55); AST (SGOT) 302 U/L (5-34); Albumin 2.3 g/dL (3.5-5.0); Alkaline Phosphatase 144 U/L (40-150); Anion Gap 5 mmol/L (10-20); BUN (Urea Nitrogen) 5 mg/dL (7.0-18.7); Bilirubin, Total 4.7 mg/dL (0.2-1.2); Calc. Creatinine Clearance 131 mL/min (70-130); Calcium 8.1 mg/dL (7.8-10.44); Carbon Dioxide 27 mmol/L (22-29); Chloride 111 mmol/L (98-107); Estimated GFR-MDRD 89; Globulin 2.6 g/dL (2.4-3.5); Glucose 82 mg/dL (70-105); Potassium 3.6 mmol/L (3.5-5.1); Protein, Total 4.9 g/dL (6.0-8.3); Sodium 139 mmol/L (136-145)
[2018-09-27 05:30] LABS: #Basophils 0.1 thou/uL (0.0-0.2); #Eosinphils 0.2 thou/uL (0.0-0.7); #Monocytes 0.6 thou/uL (0.11-0.59); #Neutrophils 2.3 thou/uL (1.40-6.50); %Basophils 1.5 % (0.0-1.0); %Eosinophils 4.7 % (0.0-10.0); %Lymphocytes 38.2 % (21.0-51.0); %Monocytes 11.7 % (0.0-10.0); %Neutrophils 43.8 % (42.0-75.0); Hemoglobin 11.2 g/dL (12.0-16.0); Mean Corpuscular HGB CONC 30.2 g/dL (32.0-36.0); Mean Corpuscular Hemoglobin 26.8 pg (27.0-31.0); Mean Corpuscular Volume 88.6 fL (78.0-98.0); Mean Platelet Volume 7.3 fL (7.4-10.4); PLT Morphology Comment Appears Decreased; Platelet Count 117 thou/uL (130-400); RBC Distribution Width 26.5 % (11.5-14.5); Red Blood Cell (RBC) Count 4.19 mill/uL (4.20-5.40); White Blood Cell (WBC) Count 5.2 thou/uL (4.8-10.8)
[2018-09-27] MEDS: Ferrous Sulfate 325 MG TAB PO SCH ×2 (08:38→17:19)
[2018-09-27] MEDS: Famotidine 20 MG TAB PO SCH ×2 (08:39→20:02)
[2018-09-27] MEDS: Sodium Chloride 0.9% 1,000 ML IV SCH ×3 (09:21→20:03)
[2018-09-27 11:36] LABS: ANA Symphony (Qualitative) Negative (Negative); EliA Vaculitis New Method **** NEW METHOD ****; dsDNA IgG Antibody 1.1 IU/mL (<10 Negative)
[2018-09-27 13:19] LABS: Smooth Muscle Total ABS 20 Units (0-19)
--- NOTE | 2018-09-27 14:13 | PDOC.PN ---
- Subjective Encounter Start Date: 09/27/18 Encounter Start Time: 07:40 Pt seen for followup re: abnormal LFTs. No new complaints, feels better. - Objective Resuscitation Status: Resuscitation Status FULL:Full Resuscitation MAR Reviewed: Yes Vital Signs & Weight: Vital Signs (12 hours) Temp Pulse Resp BP Pulse Ox 09/27/18 11:30 98.2 F 68 18 145/97 H 95 09/27/18 11:09 98.2 F 68 18 145/97 H 95 09/27/18 08:00 93 L 09/27/18 07:34 97.7 F 57 L 17 144/93 H 93 L Weight Admit Weight 180 lb 6 oz Weight 180 lb 6 oz I&O: 09/26/18 09/27/18 09/28/18 06:59 06:59 06:59 Intake Total 3005 1300 Output Total 550 100 Balance 2455 1200 Result Diagrams: 09/27/18 03:49 09/27/18 03:49 Additional Labs: Accuchecks 09/27/18 09/27/18 09/26/18 11:05 05:28 20:27 POC Glucose 98 77 108 09/26/18 09/26/18 17:13 16:34 POC Glucose 117 H 59 L* Labs reviewed by me Phys Exam - Physical Examination Constitutional: NAD HEENT: moist MMs scleral icterus Neck: supple Respiratory: clear to auscultation bilateral Cardiovascular: RRR Gastrointestinal: soft Neurological: moves all 4 limbs Psychiatric: normal affect Dx/Plan (1) Abnormal LFTs Code(s): R94.5 - ABNORMAL RESULTS OF LIVER FUNCTION STUDIES Status: Acute Comment: statin and tegretol on hold, LFTs stabilizing. Workup in progress. Updated pt's custodial physician. (2) Hepatic encephalopathy Code(s): K72.90 - HEPATIC FAILURE, UNSPECIFIED WITHOUT COMA Status: Acute Comment: on lactulose (3) Rash Code(s): R21 - RASH AND OTHER NONSPECIFIC SKIN ERUPTION Status: Acute Comment: Improved (4) Iron deficiency Code(s): E61.1 - IRON DEFICIENCY Status: Acute Comment: continue iron replacement (5) HTN (hypertension) Code(s): I10 - ESSENTIAL (PRIMARY) HYPERTENSION Status: Chronic Comment: controlled (6) Dyslipidemia Code(s): E78.5 - HYPERLIPIDEMIA, UNSPECIFIED Status: Chronic Comment: statin on hold - Plan * . Review of Systems - Review of Systems Respiratory: negative: Cough, Shortness of Breath, Hemoptysis, SOB with Excertion, Pleuritic Pain, Wheezing Cardiovascular: negative: chest pain, palpitations, orthopnea, paroxysmal nocturnal dyspnea, edema, light headedness - Medications/Allergies Allergies/Adverse Reactions: Allergies Allergy/AdvReac Type Severity Reaction Status Date / Time No Known Allergies Allergy Verified 09/23/18 22:07 Medications: Current Medications Clonidine (Catapres) 0.1 mg PO Q4H PRN PRN Reason: SBP > ____ Diphenhydramine HCl (Benadryl) 25 mg IVP Q8H PRN PRN Reason: Itching Famotidine (Pepcid) 20 mg PO BID [facility] Last Admin: 09/27/18 08:39 Dose: 20 mg Ferrous Sulfate (Feosol) 325 mg PO BID-[facility] Last Admin: 09/27/18 08:38 Dose: 325 mg Hydralazine HCl (Apresoline) 10 mg SLOW IVP Q4H PRN PRN Reason: SBP > 180 and HR < 70 Sodium Chloride (Normal Saline 0.9%) 1,000 mls @ 100 mls/hr IV .Q10H [facility] Last Admin: 09/27/18 09:21 Dose: 1,000 mls Ibuprofen (Motrin) 400 mg PO Q4H PRN PRN Reason: Fever > 101 Last Admin: 09/26/18 13:29 Dose: 400 mg Lactulose (Lactulose) 20 gm PO QID [facility] Last Admin: 09/27/18 08:39 Dose: 20 gm Ondansetron HCl (Zofran Odt) 4 mg PO Q6H PRN PRN Reason: Nausea/Vomiting Ondansetron HCl (Zofran) 4 mg IVP Q6H PRN PRN Reason: Nausea/Vomiting Last Admin: 09/24/18 08:32 Dose: 4 mg Sodium Chloride (Flush - Normal Saline) 10 ml IVF Q12HR [facility] Last Admin: 09/27/18 08:39 Dose: Not Given Sodium Chloride (Flush - Normal Saline) 10 ml IVF PRN PRN PRN Reason: Saline Flush
[2018-09-27 15:25] LABS: Hep C PCR-Quant HCV Not Detected IU/mL (.)
[2018-09-27] MEDS: Ibuprofen 200 MG TAB PO PRN (17:19)
--- NOTE | 2018-09-27 18:11 | PRG ---
DATE OF SERVICE: 09/27/2018 SUBJECTIVE: Ms. Galvan is feeling a little bit better today with regard to mental status. She feels her vision is better and her thinking is more clear. She still does have some upper abdominal discom fort. No new symptoms. OBJECTIVE: VITAL SIGNS: Temperature 98.2, pulse 68, blood pressure 145/97, 95% oxygen saturation on room air. GENERAL: No acute distress. HEART: Regular rate and rhythm. LUNGS: Clear to auscultation bilaterally. ABDOMEN: Nondistended. Bowel sounds present, soft, some tenderness to palpation in the upper abdome n. No guarding, rebound tenderness. EXTREMITIES: No peripheral edema. LABORATORY STUDIES: INR is stable, back to 2.1. WBC 5.4, hemoglobin 11.2, platelets 117. Sodium 13 9, potassium 3.6, BUN 5, creatinine 0.71. LFTs are all essentially stable with total bilirubin 4.7, alkaline phosphatase 144, AST 302, ALT 387, glucose 106. CORBY came back negative, a SMA titer came ba ck only weakly positive at 20. Antimitochondrial antibody is negative. Total IgG is only 1536. Hep atitis C RNA was not detected. Garza screen was negative, hepatitis B DNA is still pending, but hepat itis B surface antigen and hepatitis B core IgM are negative. Ceruloplasmin is 15. Alpha 1 antitryp sin level normal at 125. ASSESSMENT AND PLAN: 1. Acute hepatitis, stable, but no improvement in LFTs over the past 4 days. Laboratory workup has been essentially unrevealing as to a cause of this. I think at this time we need to get a liver biop sy for more definitive diagnosis. I discussed this with the patient and she desires to proceed. We will have this done guidance with Interventional Radiology. 2. Hepatic encephalopathy. Symptoms have significantly improved this admission.
[2018-09-27 18:46] LABS: BHCG - Serum Negative (NEGATIVE); Pregs Control Background? CLEAR/WHITE (CLR/WHITE); Pregs Control Bar Appear? YES (CONTROL BAR)
[2018-09-27 20:09] LABS: HBV as IU/mL HBV DNA not detected IU/mL (.)
[2018-09-28 05:03] LABS: BHCG - Serum Negative (NEGATIVE); Pregs Control Background? CLEAR/WHITE (CLR/WHITE); Pregs Control Bar Appear? YES (CONTROL BAR)
[2018-09-28 05:13] LABS: INR-International Normal Ratio 2.2; Prothrombin Time 24.3 SEC (12.0-14.7)
[2018-09-28 05:22] LABS: ALT (SGPT) 368 U/L (8-55); AST (SGOT) 285 U/L (5-34); Albumin 2.3 g/dL (3.5-5.0); Alkaline Phosphatase 157 U/L (40-150); Anion Gap 8 mmol/L (10-20); BUN (Urea Nitrogen) 6 mg/dL (7.0-18.7); Calc. Creatinine Clearance 134 mL/min (70-130); Calcium 7.7 mg/dL (7.8-10.44); Carbon Dioxide 23 mmol/L (22-29); Chloride 112 mmol/L (98-107); Estimated GFR-MDRD Greater than 90; Globulin 2.8 g/dL (2.4-3.5); Glucose 72 mg/dL (70-105); Potassium 3.6 mmol/L (3.5-5.1); Protein, Total 5.1 g/dL (6.0-8.3); Sodium 139 mmol/L (136-145)
[2018-09-28] MEDS: Ferrous Sulfate 325 MG TAB PO SCH ×2 (08:03→17:20)
[2018-09-28] MEDS: Famotidine 20 MG TAB PO SCH ×2 (08:03→21:03)
[2018-09-28] MEDS ORDERED: Sodium Bicarbonate 2.5 MEQ/5 ML VIAL ONE (11:15)
[2018-09-28] MEDS ORDERED: Midazolam HCl 2 mg/2 ml Vial ONE (11:15)
[2018-09-28] MEDS ORDERED: Lidocaine 1% PF 5 ML VIAL ONE (11:15)
[2018-09-28] MEDS ORDERED: Fentanyl 100 MCG/2 ML VIAL ONE (11:15)
[2018-09-28] MEDS: Ibuprofen 200 MG TAB PO PRN ×3 (13:04→21:11)
--- NOTE | 2018-09-28 13:24 | ULT ---
HEPATIC BIOPSY: History: Hepatitis. FINDINGS: After explaining the procedure and answering all questions, sonographic survey shows left liver lobe at the subxyphoid level. Free fluid is noted within the right upper quadrant. Sterile technique, buffered local anesthesia, sonographic guidance and an anterior subxyphoid approac h were used to carefully advance a 17 gauge Trocar needle into the left liver lobe. Position was conf irmed with CT. Two 18 gauge core biopsy specimens were obtained without difficulty and eventually submitted to patho logy for evaluation. Needle was removed. Post procedure imaging shows no evidence of complication. T he patient tolerated the procedure well and was returned in unchanged condition. IMPRESSION: Technically successful sonographic guidance random hepatic biopsy. Pathology is pending. POS: [facility]
--- NOTE | 2018-09-28 15:02 | PDOC.PN ---
- Subjective Encounter Start Date: 09/28/18 Encounter Start Time: 10:40 Pt seen for followup re: abnormal LFTs. Feels better. No fevers or chills. - Objective Resuscitation Status: Resuscitation Status FULL:Full Resuscitation Vital Signs & Weight: Vital Signs (12 hours) Temp Pulse Pulse Resp BP BP Pulse Ox 09/28/18 11:35 98.2 F 65 16 159/98 H 99 09/28/18 11:00 97.9 F 68 68 18 152/92 H 152/92 H 95 09/28/18 08:00 98.1 F 60 18 145/100 H 97 Weight Admit Weight 180 lb 6 oz Weight 180 lb 6 oz I&O: 09/27/18 09/28/18 09/29/18 06:59 06:59 06:59 Intake Total 1300 1823 240 Output Total 100 Balance 1200 1823 240 Result Diagrams: 09/27/18 03:49 09/28/18 04:00 Additional Labs: Accuchecks 09/28/18 09/28/18 09/27/18 12:18 05:04 20:02 POC Glucose 59 L* 79 100 09/27/18 16:22 POC Glucose 106 Phys Exam - Physical Examination Obese scleral icterus Neck: supple Respiratory: clear to auscultation bilateral Cardiovascular: RRR Gastrointestinal: soft Neurological: moves all 4 limbs Psychiatric: normal affect Dx/Plan (1) Abnormal LFTs Code(s): R94.5 - ABNORMAL RESULTS OF LIVER FUNCTION STUDIES Status: Acute Comment: LFTs stabilizing. Statin and tegretol on hold. Awaiting liver biopsy (2) Hepatic encephalopathy Code(s): K72.90 - HEPATIC FAILURE, UNSPECIFIED WITHOUT COMA Status: Acute Comment: continue lactulose (3) Rash Code(s): R21 - RASH AND OTHER NONSPECIFIC SKIN ERUPTION Status: Acute Comment: Improved (4) Iron deficiency Code(s): E61.1 - IRON DEFICIENCY Status: Acute Comment: on iron replacement (5) HTN (hypertension) Code(s): I10 - ESSENTIAL (PRIMARY) HYPERTENSION Status: Chronic Comment: controlled (6) Dyslipidemia Code(s): E78.5 - HYPERLIPIDEMIA, UNSPECIFIED Status: Chronic Comment: statin on hold - Plan * . Review of Systems - Review of Systems Cardiovascular: negative: chest pain, palpitations, orthopnea, paroxysmal nocturnal dyspnea, edema, light headedness Gastrointestinal: negative: Nausea, Vomiting, Abdominal Pain, Diarrhea, Constipation, Melena, Hematochezia - Medications/Allergies Allergies/Adverse Reactions: Allergies Allergy/AdvReac Type Severity Reaction Status Date / Time No Known Allergies Allergy Verified 09/23/18 22:07 Medications: Current Medications Clonidine (Catapres) 0.1 mg PO Q4H PRN PRN Reason: SBP > ____ Diphenhydramine HCl (Benadryl) 25 mg IVP Q8H PRN PRN Reason: Itching Famotidine (Pepcid) 20 mg PO BID [facility] Last Admin: 09/28/18 08:03 Dose: 20 mg Ferrous Sulfate (Feosol) 325 mg PO BID-[facility] Last Admin: 09/28/18 08:03 Dose: 325 mg Hydralazine HCl (Apresoline) 10 mg SLOW IVP Q4H PRN PRN Reason: SBP > 180 and HR < 70 Sodium Chloride (Normal Saline 0.9%) 1,000 mls @ 100 mls/hr IV .Q10H [facility] Last Admin: 09/27/18 20:03 Dose: 1,000 mls Ibuprofen (Motrin) 400 mg PO Q4H PRN PRN Reason: Fever > 101 Last Admin: 09/28/18 13:04 Dose: 400 mg Lactulose (Lactulose) 20 gm PO QID [facility] Last Admin: 09/28/18 13:04 Dose: 20 gm Ondansetron HCl (Zofran Odt) 4 mg PO Q6H PRN PRN Reason: Nausea/Vomiting Ondansetron HCl (Zofran) 4 mg IVP Q6H PRN PRN Reason: Nausea/Vomiting Last Admin: 09/24/18 08:32 Dose: 4 mg Sodium Chloride (Flush - Normal Saline) 10 ml IVF Q12HR [facility] Last Admin: 09/28/18 08:08 Dose: 10 ml Sodium Chloride (Flush - Normal Saline) 10 ml IVF PRN PRN PRN Reason: Saline Flush
[2018-09-28] MEDS: Sodium Chloride 0.9% 1,000 ML IV SCH ×2 (17:20→21:03)
--- NOTE | 2018-09-28 21:01 | PRG ---
DATE OF SERVICE: 09/28/2018 SUBJECTIVE: Ms. Galvan got her liver biopsy done earlier today. This went well. She has been having some continued epigastric pain. This is really the same pain she was having prior to the liver biop sy, a bit worse now. There are no other symptoms. She is tolerating her diet. OBJECTIVE: VITAL SIGNS: Temperature 98.7, pulse 67, blood pressure 146/89, 93% oxygen saturation on room air. GENERAL: No acute distress. HEART: Regular rate and rhythm. LUNGS: Clear to auscultation bilaterally. ABDOMEN: Bowel sounds present, soft, tenderness to palpation across the entire upper abdomen. No gu arding or rebound tenderness. EXTREMITIES: No peripheral edema. VESSELS: Radial pulses 2+ bilaterally. LABORATORY STUDIES: WBC 5.2, hemoglobin 11.2, platelets 117. INR up to 2.2, total bilirubin up to 5 .0, alkaline phosphatase 157, AST 285, ALT 368. Serum test negative. BUN 6, creatinine 0. 69. ASSESSMENT AND PLAN: 1. Acute hepatitis, unclear etiology. 2. Hepatic encephalopathy, stabilized. We will await results of liver biopsy. Primary consideratio ns would still include drug-induced liver injury versus possible autoimmune hepatitis, though note th e negative CORBY and normal total IgG level. Labs are otherwise nonrevealing. Continue supportive car e in the meantime.
[2018-09-29] MEDS: Famotidine 20 MG TAB PO SCH ×2 (08:01→20:52)
[2018-09-29] MEDS: Sodium Chloride 0.9% 1,000 ML IV SCH (08:01)
[2018-09-29] MEDS: Ferrous Sulfate 325 MG TAB PO SCH ×2 (08:01→16:06)
[2018-09-29] MEDS: Ibuprofen 200 MG TAB PO PRN ×4 (08:08→21:32)
[2018-09-29] MEDS: Dextrose 5 %-0.45 % NaCl 1,000 ML IV SCH (16:06)
--- NOTE | 2018-09-29 17:09 | PDOC.PN ---
- Subjective Encounter Start Date: 09/29/18 Encounter Start Time: 17:08 Ms. Galvan was seen today in follow-up of Hepatitis. She continues to have some abdominal pain in the right upper quadrant. She denies any nausea or vomiting. - Objective Resuscitation Status: Resuscitation Status FULL:Full Resuscitation MAR Reviewed: Yes Vital Signs & Weight: Vital Signs (12 hours) Temp Pulse Resp BP Pulse Ox 09/29/18 08:19 97.7 F 61 14 122/76 94 L 09/29/18 08:08 94 L Weight Admit Weight 180 lb 6 oz Weight 180 lb 6 oz I&O: 09/28/18 09/29/18 09/30/18 06:59 06:59 06:59 Intake Total 1823 3100 Balance 1823 3100 Result Diagrams: 09/27/18 03:49 09/28/18 04:00 Additional Labs: Accuchecks 09/29/18 09/29/18 09/29/18 17:00 11:58 11:15 POC Glucose 101 96 58 L* 09/29/18 09/29/18 09/28/18 06:10 05:18 20:23 POC Glucose 115 H 55 L* 117 H 09/28/18 16:47 POC Glucose 111 H Phys Exam - Physical Examination HEENT: PERRLA + icteric sclera Respiratory: no wheezing, no rales, no rhonchi, clear to auscultation bilateral Cardiovascular: RRR, no significant murmur, no rub Gastrointestinal: soft + RUQ tenderness no rebound or guarding, + mild organomegaly no spider angiomata, Musculoskeletal: edema present 2+ pitting edema in both lower extremities Neurological: non-focal, moves all 4 limbs Psychiatric: normal affect, A&O x 3 Deviation from normal: no asterixis Dx/Plan (1) Acute hepatitis Code(s): B17.9 - ACUTE VIRAL HEPATITIS, UNSPECIFIED Status: Acute Comment: workup in progress. (2) HTN (hypertension) Code(s): I10 - ESSENTIAL (PRIMARY) HYPERTENSION Status: Chronic Comment: controlled (3) Seizure disorder Code(s): G40.909 - EPILEPSY, UNSP, NOT INTRACTABLE, WITHOUT STATUS EPILEPTICUS Status: Acute - Plan * Acute Hepatits- ? etiology- possibly due to Tegretol, or Auto-immune Hepatitis * Seizure disorder- ? change to a new anti seizure medication- will discuss with Neurology * HTN- blood pressure has been stable off Amlodipine, and Lisinopril * Await further recommendations from GI.
--- NOTE | 2018-09-29 17:52 | PRG ---
DATE OF SERVICE: 09/29/2018 This is a GI inpatient daily progress note. SUBJECTIVE: Ms. Galvan is feeling a bit better today. Abdominal discomfort has decreased. It remains in the right upper quadrant. No nausea or vomiting. She is tolerating her diet. She feels mentally clear. OBJECTIVE: VITAL SIGNS: Temperature 97.7, pulse 61, blood pressure 122/76, 94% oxygen saturation on room air. GENERAL: No acute distress. HEART: Regular rate and rhythm. LUNGS: Clear to auscultation bilaterally. ABDOMEN: Bowel sounds are present, soft with mild tenderness to palpation in the right upper quadrant. No guarding or rebound tenderness. EXTREMITIES: No peripheral edema. LABORATORY STUDIES: Glucose 101. No other a.m. labs today. Liver pathology did return from her biopsy yesterday. This demonstrates severe acute hepatitis grade III/III, likely etiology was given as a medication related or other toxin. There is some minimal portal fibrosis just stage 0-1/4. Inflammatory infiltrate consists predominantly of lymphocytes. ASSESSMENT AND PLAN: 1. Acute hepatitis. 2. Hepatic encephalopathy, stabilized. I reviewed the liver pathology report with the patient. Overall, the biopsy findings seem most consistent with medication or toxin related liver injury. Accordingly, I think we are going to have to blame either the Tegretol or the statin she had been on recently. I would recommend avoiding both of these medications in the future. With the negative autoimmune markers and biopsy findings as they are, I cannot really recommend starting steroids at this time. I would like to see her transaminases start to downtrend a bit more, particularly I want to see the INR stabilize before considering hospital discharge. Once the numbers trend in the right direction, I think she could be discharged back to her unit, with close followup in the outpatient setting for repeat LFTs and INR. Please call any time with questions or concerns. FIDEL
[2018-09-30 05:19] LABS: INR-International Normal Ratio 1.9; Prothrombin Time 22.1 SEC (12.0-14.7)
[2018-09-30 05:37] LABS: ALT (SGPT) 299 U/L (8-55); AST (SGOT) 223 U/L (5-34); Albumin 2.2 g/dL (3.5-5.0); Alkaline Phosphatase 161 U/L (40-150); Anion Gap 8 mmol/L (10-20); BUN (Urea Nitrogen) 7 mg/dL (7.0-18.7); Bilirubin, Total 4.3 mg/dL (0.2-1.2); Calc. Creatinine Clearance 131 mL/min (70-130); Calcium 7.8 mg/dL (7.8-10.44); Carbon Dioxide 22 mmol/L (22-29); Chloride 114 mmol/L (98-107); Estimated GFR-MDRD 89; Globulin 2.8 g/dL (2.4-3.5); Glucose 95 mg/dL (70-105); Potassium 3.8 mmol/L (3.5-5.1); Sodium 140 mmol/L (136-145)
[2018-09-30] MEDS: Ibuprofen 200 MG TAB PO PRN ×2 (05:39→16:35)
[2018-09-30] MEDS: Dextrose 5 %-0.45 % NaCl 1,000 ML IV SCH ×2 (05:40→16:34)
[2018-09-30 05:52] LABS: #Basophils 0.1 thou/uL (0.0-0.2); #Eosinphils 0.2 thou/uL (0.0-0.7); #Lymphocytes 1.8 thou/uL (1.20-3.40); #Monocytes 0.5 thou/uL (0.11-0.59); #Neutrophils 2.2 thou/uL (1.40-6.50); %Basophils 1.1 % (0.0-1.0); %Eosinophils 4.6 % (0.0-10.0); %Lymphocytes 37.1 % (21.0-51.0); %Monocytes 10.6 % (0.0-10.0); %Neutrophils 46.6 % (42.0-75.0); Anisocytosis MODERATE=16-30 cells (100X) (0-5/hpf); Elliptocytes SLIGHT = 2-5 cells (100X) (0-1/hpf); Hemoglobin 11.1 g/dL (12.0-16.0); MDiff Complete? YES; Mean Corpuscular HGB CONC 29.7 g/dL (32.0-36.0); Mean Corpuscular Hemoglobin 27.1 pg (27.0-31.0); Mean Corpuscular Volume 91.3 fL (78.0-98.0); Mean Platelet Volume 9.8 fL (7.4-10.4); PLT Morphology Comment Appears Decreased; Platelet Count 106 thou/uL (130-400); RBC Distribution Width 28.6 % (11.5-14.5); Red Blood Cell (RBC) Count 4.08 mill/uL (4.20-5.40); Target Cells SLIGHT = 2-5 cells (100X) (0-1/hpf); White Blood Cell (WBC) Count 4.7 thou/uL (4.8-10.8)
[2018-09-30] MEDS: Ferrous Sulfate 325 MG TAB PO SCH ×2 (08:11→16:27)
[2018-09-30] MEDS: Famotidine 20 MG TAB PO SCH ×2 (08:11→21:11)
--- NOTE | 2018-09-30 15:11 | PDOC.PN ---
- Subjective Encounter Start Date: 09/30/18 Encounter Start Time: 12:45 Ms. Galvan is complaining of some continued abdominal discomfort. She denies nausea, but has had a poor appetite. - Objective Resuscitation Status: Resuscitation Status FULL:Full Resuscitation MAR Reviewed: Yes Vital Signs & Weight: Vital Signs (12 hours) Temp Pulse Resp BP Pulse Ox 09/30/18 09:50 159/102 H 09/30/18 08:07 97.4 F L 68 16 158/102 H 95 09/30/18 08:00 95 Weight Admit Weight 180 lb 6 oz Weight 180 lb 6 oz I&O: 09/29/18 09/30/18 10/01/18 06:59 06:59 06:59 Intake Total 3100 3253 Balance 3100 3253 Result Diagrams: 09/30/18 04:59 09/30/18 04:59 Additional Labs: Accuchecks 09/30/18 09/30/18 09/29/18 11:42 04:36 20:46 POC Glucose 98 70 90 09/29/18 17:00 POC Glucose 101 Phys Exam - Physical Examination HEENT: PERRLA Respiratory: no wheezing, no rales, no rhonchi, clear to auscultation bilateral Cardiovascular: RRR, no significant murmur, no rub no gallop Gastrointestinal: soft, no distention, positive bowel sounds + RUQ tenderness no rebound Musculoskeletal: edema present 1-2 + pitting edema Neurological: non-focal, normal sensation Dx/Plan (1) Acute hepatitis Code(s): B17.9 - ACUTE VIRAL HEPATITIS, UNSPECIFIED Status: Acute Comment: workup in progress. (2) HTN (hypertension) Code(s): I10 - ESSENTIAL (PRIMARY) HYPERTENSION Status: Chronic Comment: controlled (3) Seizure disorder Code(s): G40.909 - EPILEPSY, UNSP, NOT INTRACTABLE, WITHOUT STATUS EPILEPTICUS Status: Chronic - Plan * Acute Hepatitis- Gastroenterology Input appreciated- will continue to trend her LFT's. Will discontinue Tegretol, and Atorvastatin. Will replace Tegretol with Topamax * Encourage oral intake * HTN- blood pressure is not controlled- will re-start Amolodipine tonight, and Lisinopril tomorrow * Seizure disorder- none noted, and Topamax will be started in place of Tegretol.
--- NOTE | 2018-09-30 15:17 | PRG ---
DATE OF SERVICE: 09/30/2018 GI INPATIENT DAILY PROGRESS NOTE SUBJECTIVE: Ms. Galvan is feeling pretty well. She continues to have right upper quadrant abdominal pain, which is positional in nature, not particularly related to oral intake. OBJECTIVE: VITAL SIGNS: Temperature 97.4, pulse 68, blood pressure 159/102, 95% oxygen saturation on room air. GENERAL: No acute distress. HEART: Regular rate and rhythm. LUNGS: Clear to auscultation bilaterally. ABDOMEN: Bowel sounds present, soft, some tenderness to palpation in the right upper quadrant. No g uarding or rebound tenderness. EXTREMITIES: No peripheral edema. LABORATORY STUDIES: WBC 4.7, hemoglobin 11.1, platelets 106,000. INR trended down to 1.9, total kaleb irubin trended down to 4.3, alkaline phosphatase trended down to 161, AST down trending to 223 and AL T down trending to 299. ASSESSMENT AND PLAN: 1. Acute hepatitis, it appears secondary to drug-induced liver injury, now improving. 2. Hepatic encephalopathy, improved on lactulose. I am encouraged by downtrend in LFTs, particularl y the total bilirubin over the past couple of days and the ALT over the past week that she has been h ere. INR trended down to 1.9 as well. This does appear to be slowly resolving. From a gastrointest inal standpoint, I think the patient could be discharged back to her unit, with plan for close follow up in the next couple of weeks and recheck of LFTs and INR. I would continue to hold her Tegretol an d her statin, minimize other medications as well if possible. Continue on the lactulose for now. Please call back anytime with questions or concerns.
[2018-09-30] MEDS: Amlodipine 10 MG TAB PO SCH (16:27)
[2018-09-30] MEDS: Topiramate 25 MG TAB PO SCH (21:11)
[2018-10-01 04:54] LABS: ALT (SGPT) 292 U/L (8-55); AST (SGOT) 210 U/L (5-34); Albumin 2.3 g/dL (3.5-5.0); Alkaline Phosphatase 155 U/L (40-150); Bilirubin, Direct 3.1 mg/dL (0.1-0.3); Bilirubin, Total 4.7 mg/dL (0.2-1.2)
[2018-10-01] MEDS: Lisinopril 20 MG TAB PO SCH (08:04)
[2018-10-01] MEDS: Ferrous Sulfate 325 MG TAB PO SCH ×2 (08:05→16:56)
[2018-10-01] MEDS: Famotidine 20 MG TAB PO SCH ×2 (08:05→20:39)
[2018-10-01] MEDS: Topiramate 25 MG TAB PO SCH (08:06)
[2018-10-01] MEDS: Dextrose 5 %-0.45 % NaCl 1,000 ML IV SCH (08:12)
[2018-10-01] MEDS ORDERED: Ibuprofen 200 MG TAB PO PRN (14:15)
[2018-10-01] MEDS ORDERED: diphenhydrAMINE 25 MG in Sodium Chloride 0.9% 50 ML IVPB SCH (14:45)
--- NOTE | 2018-10-01 15:33 | RAD ---
CHEST 2 VIEWS: Date: 10/01/18 HISTORY: Shortness of breath. COMPARISON: None. FINDINGS: There are small bilateral pleural effusions. Right basilar air space opacity. Cardiac silhouette and mediastinal contours appear within normal limits. IMPRESSION: Moderate right and small left pleural effusion. POS: [facility]
[2018-10-01] MEDS: Amlodipine 10 MG TAB PO SCH (16:56)
--- NOTE | 2018-10-01 17:19 | PDOC.PN ---
- Subjective Encounter Start Date: 10/01/18 Encounter Start Time: 14:10 Ms. Hilario was seen today in follow-up. She says she feels swollen, and short of breath since this afternoon. She also feels like there are pins pricking her face, and that she is itchy. - Objective Resuscitation Status: Resuscitation Status FULL:Full Resuscitation MAR Reviewed: Yes Vital Signs & Weight: Vital Signs (12 hours) Temp Pulse Resp BP BP BP Pulse Ox 10/01/18 16:56 81 143/90 H 10/01/18 15:00 81 18 143/90 H 96 10/01/18 08:04 151/93 H 10/01/18 08:00 95 10/01/18 07:55 97.9 F 59 L 18 151/93 H 95 Weight Admit Weight 180 lb 6 oz Weight 180 lb 6 oz I&O: 09/30/18 10/01/18 10/02/18 06:59 06:59 06:59 Intake Total 3253 1493 Balance 3253 1493 Result Diagrams: 09/30/18 04:59 09/30/18 04:59 Additional Labs: Accuchecks 10/01/18 10/01/18 10/01/18 16:27 12:00 06:03 POC Glucose 68 L 104 72 09/30/18 09/30/18 19:58 17:06 POC Glucose 139 H 105 Phys Exam - Physical Examination HEENT: PERRLA mild erythema on the face Respiratory: no wheezing, no rales, no rhonchi, clear to auscultation bilateral + coarse breath sounds bilaterally Cardiovascular: RRR, no significant murmur, no rub Gastrointestinal: soft, non-tender, no distention, positive bowel sounds Musculoskeletal: edema present 2+pitting edema in both lower extremities, and 1+ edema in the upper extremities Dx/Plan (1) Acute hepatitis Code(s): B17.9 - ACUTE VIRAL HEPATITIS, UNSPECIFIED Status: Acute Comment: workup in progress. (2) Dyspnea Code(s): R06.00 - DYSPNEA, UNSPECIFIED Status: Acute (3) HTN (hypertension) Code(s): I10 - ESSENTIAL (PRIMARY) HYPERTENSION Status: Chronic Comment: controlled (4) Seizure disorder Code(s): G40.909 - EPILEPSY, UNSP, NOT INTRACTABLE, WITHOUT STATUS EPILEPTICUS Status: Chronic - Plan * Hepatits- her liver function tests are slightly better today- will continue to monitor * Dyspnea- a Chest X-ray was ordered, and reviewed by me- she appears to be volume overloaded, with bilateral pleural effusions- will stop the IV fluids, and Give a dose of Lasix IV * HTN- better- continue Amlodipine, and Lisinopril * Seizure disorder- will hold Topamax for now, not sure if she had an allergic reaction- may re-introduce at a later date .
[2018-10-01] MEDS ORDERED: Furosemide 40 MG/4 ML VIAL SLOW IVP SCH (17:30)
[2018-10-02 04:35] LABS: ALT (SGPT) 284 U/L (8-55); AST (SGOT) 201 U/L (5-34); Albumin 2.4 g/dL (3.5-5.0); Alkaline Phosphatase 168 U/L (40-150); Anion Gap 8 mmol/L (10-20); BUN (Urea Nitrogen) 7 mg/dL (7.0-18.7); Bilirubin, Total 4.5 mg/dL (0.2-1.2); Calc. Creatinine Clearance 124 mL/min (70-130); Calcium 8.1 mg/dL (7.8-10.44); Carbon Dioxide 23 mmol/L (22-29); Chloride 111 mmol/L (98-107); Estimated GFR-MDRD 84; Glucose 82 mg/dL (70-105); Potassium 3.4 mmol/L (3.5-5.1); Protein, Total 5.3 g/dL (6.0-8.3); Sodium 139 mmol/L (136-145)
[2018-10-02] MEDS: Famotidine 20 MG TAB PO SCH ×2 (08:42→21:14)
[2018-10-02] MEDS: Lisinopril 20 MG TAB PO SCH (08:43)
[2018-10-02] MEDS: Ferrous Sulfate 325 MG TAB PO SCH ×2 (08:43→16:47)
[2018-10-02 10:03] LABS: INR-International Normal Ratio 1.9; Prothrombin Time 21.5 SEC (12.0-14.7)
[2018-10-02] MEDS ORDERED: Potassium Chloride 20 MEQ TAB PO SCH (13:00)
[2018-10-02] MEDS ORDERED: Furosemide 40 MG/4 ML VIAL SLOW IVP SCH (13:00)
--- NOTE | 2018-10-02 15:20 | PDOC.PN ---
- Subjective Encounter Start Date: 10/02/18 Encounter Start Time: 13:10 Ms. Galvan was seen today in follow-up of Acute Hepatitis and liver failure She says she feels less swollen today. She also says the strange pin-prick sensation she had in her face is also gone. - Objective Resuscitation Status: Resuscitation Status FULL:Full Resuscitation MAR Reviewed: Yes Vital Signs & Weight: Vital Signs (12 hours) Temp Pulse Resp BP BP Pulse Ox 10/02/18 08:43 123/82 10/02/18 08:00 96 10/02/18 07:44 97.9 F 74 16 123/82 96 Weight Admit Weight 180 lb 6 oz Weight 180 lb 6 oz I&O: 10/01/18 10/02/18 10/03/18 06:59 06:59 06:59 Intake Total 1493 Balance 1493 Result Diagrams: 09/30/18 04:59 10/02/18 03:18 Additional Labs: Accuchecks 10/02/18 10/02/18 10/02/18 11:25 06:23 05:47 POC Glucose 147 H 87 59 L* 10/01/18 10/01/18 10/01/18 22:21 20:39 16:27 POC Glucose 89 67 L 68 L Phys Exam - Physical Examination HEENT: PERRLA + mild sclera icterus Respiratory: no wheezing, no rales, no rhonchi, clear to auscultation bilateral Cardiovascular: RRR, no significant murmur, no rub Gastrointestinal: soft, non-tender, no distention, positive bowel sounds Musculoskeletal: edema present 2+ pitting edema in the lower extremities and upper extemities decreased from yesterday Neurological: non-focal, moves all 4 limbs Dx/Plan (1) Acute hepatitis Code(s): B17.9 - ACUTE VIRAL HEPATITIS, UNSPECIFIED Status: Acute Comment: workup in progress. (2) Dyspnea Code(s): R06.00 - DYSPNEA, UNSPECIFIED Status: Acute (3) HTN (hypertension) Code(s): I10 - ESSENTIAL (PRIMARY) HYPERTENSION Status: Chronic Comment: controlled (4) Seizure disorder Code(s): G40.909 - EPILEPSY, UNSP, NOT INTRACTABLE, WITHOUT STATUS EPILEPTICUS Status: Chronic - Plan * Acute Hepatitis and Liver failure- etiology is unclear, but is Probable due to Medications ( Statin, and Tegretol) Her Liver function tests have improved * Dyspnea- likely from volume overload, and this has improved with Lasix. Will give another dose today * HTN- blood pressure has improved * Seizure disorder- Will need to determine what anti-seizure medication to send her on, out of the hospital She may have had a reaction to Topamax, which was suggested by Neurology. [Dilantin can have hepatotoxicity, and Keppra is metabolized in the liver.] Zonegram was suggested as another possible choice by Neurology. * She can be discharged if her LFT's and INR show continued improvement
[2018-10-02] MEDS: Amlodipine 10 MG TAB PO SCH (16:48)
[2018-10-03 05:55] LABS: ALT (SGPT) 242 U/L (8-55); AST (SGOT) 168 U/L (5-34); Albumin 2.2 g/dL (3.5-5.0); Alkaline Phosphatase 162 U/L (40-150); Anion Gap 7 mmol/L (10-20); BUN (Urea Nitrogen) 8 mg/dL (7.0-18.7); Bilirubin, Direct 2.6 mg/dL (0.1-0.3); Bilirubin, Total 4.2 mg/dL (0.2-1.2); Calc. Creatinine Clearance 107 mL/min (70-130); Calcium 7.9 mg/dL (7.8-10.44); Carbon Dioxide 26 mmol/L (22-29); Chloride 110 mmol/L (98-107); Estimated GFR-MDRD 71; Glucose 91 mg/dL (70-105); Potassium 3.8 mmol/L (3.5-5.1); Protein, Total 5.1 g/dL (6.0-8.3); Sodium 139 mmol/L (136-145)
[2018-10-03] MEDS: Famotidine 20 MG TAB PO SCH (09:47)
[2018-10-03] MEDS: Ferrous Sulfate 325 MG TAB PO SCH (09:48)
[2018-10-03] MEDS: Lisinopril 20 MG TAB PO SCH (09:48)
[2018-10-03 11:52] VITALS: BP 112/77; TEMP 97.7
--- NOTE | 2018-10-03 13:31 | DIS ---
DATE OF ADMISSION: 09/23/2018 DATE OF DISCHARGE: PRIMARY CARE PHYSICIAN: [facility], [facility]. DISCHARGE DIAGNOSES: 1. Metabolic encephalopathy, present on admission. 2. Acute hepatitis, drug induced. 3. Seizure disorder without acute exacerbation. 4. Essential hypertension. 5. Acute hypoxic respiratory failure. CONSULTATIONS: Gastroenterology, Dr. Geoffrey Giron. PROCEDURES: Liver biopsy by Radiology, 09/28/2018. HISTORY AND PHYSICAL: Ms. Galvan is a 42-year-old female, who is currently an inmate at the [facility], who presented to the emergency department complaining of fatigue, generalized weakness, and elev ated LFTs. She had some right lower quadrant abdominal pain and went to the [facility]. There she wa s noted to have transaminitis. Tegretol was discontinued trying to stabilize liver function tests an d held all the medications for about a week, but had no improvement, so she was sent to our facility. Ammonia level was noted to be 100. She was given lactulose and normal saline in the ER. We were kerline devlin for admission. HOSPITAL COURSE: The patient was seen and examined by Dr. Issa Mckay. GI was consulted. Lactulos e was continued and repeat labs were ordered. The patient was stabilized in the hospital from 09/23/2018 to 10/01/2018. During that time, her live r functions began to normalize. On the day of discharge, her AST was down to 168, ALT was 242, and a lkaline phosphatase was 162. Albumin was 2.2. Total bilirubin was down to 4.2 with a direct bilirub in of 2.6. On admission, her total bilirubin was 5.3. AST was 453 and ALT was 611. She is feeling much better with back to her baseline mental status. PHYSICAL EXAMINATION: The patient was seen and examined on the day of discharge. Discharge plan and disposition were discussed with the patient [id number] at the bedside. DISCHARGE MEDICATIONS: New medications, zonisamide 100 mg p.o. daily to be increased every couple we eks. Home meds to continue. 1. Amlodipine 10 mg daily. 2. Aspirin 81 mg daily. 3. Iron sulfate 325 mg daily. 4. Lisinopril 40 mg daily. 5. Provera 10 mg daily. Home meds to discontinue: 1. Carbamazepine to be stopped. 2. Ferrous gluconate to be stopped. 3. Atorvastatin to be stopped. FOLLOWUP APPOINTMENTS: [facility] doctor at the [facility]. DISCHARGE ACTIVITY: As tolerated. DISCHARGE DIET: Heart healthy recommended. DISCHARGE CONDITION: Stable. DISPOSITION: [facility].
[2018-10-03 13:47] LABS: Prothrombin Time 22.9 SEC (12.0-14.7)
== END 2018-10-03 12:11 | DRG 443 ==
LOC: ERS 15:56 → T4-B 21:26
PROVIDERS: ADMIT Family Medicine; ATTEND Family Medicine
PROC: 0FB23ZX Excision of Left Lobe Liver, Percutaneous Approach, Diagnostic (ICD-10-PCS; principal; 2018-09-28)
PROC: 30233K1 Transfusion of Nonautologous Frozen Plasma into Peripheral Vein, Percutaneous Approach (ICD-10-PCS; 2018-09-28)
DX: B17.9 Acute viral hepatitis, unspecified (principal); E78.5 Hyperlipidemia, unspecified; G40.909 Epilepsy, unspecified, not intractable, without status epilepticus; H52.209 Unspecified astigmatism, unspecified eye; I10 Essential (primary) hypertension; K58.9 Irritable bowel syndrome, unspecified; D50.9 Iron deficiency anemia, unspecified; K72.90 Hepatic failure, unspecified without coma; R21 Rash and other nonspecific skin eruption; R06.00 Dyspnea, unspecified; Z79.82 Long term (current) use of aspirin
CPT/HCPCS: 36415; 36416; 36430; 47000; 71046; 74177; 76700; 76942; 80048; 80053; 80074; 80076; 80306; 80307; 81003; 81015; 82103; 82140; 82390; 82550; 82728; 83516; 83540; 83550; 83690; 84703; 85007; 85025; 85027; 85610; 85730; 86038; 86225; 86308; 86850; 86900; 86901; 87517; 87522; 88307; 88313; 94760; 96361; 96374; J1200; J1885; J1940; J2001; J2250; J2405; J2916; J3010; J7050; P9059

== ENCOUNTER 2018-10-07 10:29 | Emergency (ER) | payer OTHER ==
[2018-10-07 11:48] LABS: PTT 39.3 SEC (22.9-36.1); Prothrombin Time 22.8 SEC (12.0-14.7)
[2018-10-07 12:09] LABS: ALT (SGPT) 260 U/L (8-55); AST (SGOT) 219 U/L (5-34); Albumin 2.9 g/dL (3.5-5.0); Alkaline Phosphatase 203 U/L (40-150); Anion Gap 13 mmol/L (10-20); BUN (Urea Nitrogen) 6 mg/dL (7.0-18.7); Bilirubin, Total 6.1 mg/dL (0.2-1.2); Calc. Creatinine Clearance 0 mL/min (70-130); Calcium 8.6 mg/dL (7.8-10.44); Carbon Dioxide 25 mmol/L (22-29); Chloride 108 mmol/L (98-107); Estimated GFR-MDRD 79; Globulin 3.6 g/dL (2.4-3.5); Glucose 60 mg/dL (70-105); Lipase 32 U/L (8-78); Potassium 3.5 mmol/L (3.5-5.1); Protein, Total 6.5 g/dL (6.0-8.3); Sodium 142 mmol/L (136-145)
[2018-10-07 12:10] LABS: Troponin I Less than 0.010 ng/mL (< 0.028)
[2018-10-07 12:12] LABS: Bilirubin Moderate (Negative); Blood, Urine Negative (Negative); Clarity CLOUDY (Clear); Glucose, Urine (Dipstick) Negative (Negative); Leukocyte Moderate (Negative); Nitrite Negative (Negative); Protein, Urine (Dipstick) Negative (Neg-Trace); pH, Urine 5.5 (5.0-9.0)
[2018-10-07 12:15] LABS: WBC/HPF 21-50 HPF (0-3)
[2018-10-07 12:16] LABS: BHCG - Serum Negative (NEGATIVE); Pregs Control Background? CLEAR/WHITE (CLR/WHITE); Pregs Control Bar Appear? YES (CONTROL BAR)
[2018-10-07 12:16] LABS: Yeast-AUWi Flag 129.8 (0-25.0)
[2018-10-07] MEDS ORDERED: ISOVUE-370 76%-LOCM 1 ML ONE (12:32)
[2018-10-07 12:41] LABS: Bacteria/HPF 3+ HPF (None Seen); RBC/HPF 0-3 HPF (0-3); Yeast-All Forms None Seen HPF (None Seen)
[2018-10-07 12:42] LABS: Hyaline Casts/LPF 0-3 HYALINE CAST LPF (0-3 Hyaline); Manual Microscopic Reviewed? No Path Casts Seen
[2018-10-07 12:47] LABS: Eosinophils 1 % (0-10); Hemoglobin 13.1 g/dL (12.0-16.0); Lymphocytes 30 % (21-51); MDiff Complete? YES; Mean Corpuscular HGB CONC 29.7 g/dL (32.0-36.0); Mean Corpuscular Hemoglobin 27.8 pg (27.0-31.0); Mean Corpuscular Volume 93.6 fL (78.0-98.0); Mean Platelet Volume 7.9 fL (7.4-10.4); Monocytes 7 % (0-10); Neutrophil 62 % (42-75); Ovalocytes SLIGHT = 2-5 cells (100X) (0-1/hpf); PLT Morphology Comment Appears Decreased; Platelet Count 103 thou/uL (130-400); Poikilocytosis SLIGHT = 6-15 cells (100X) (0-5/hpf); RBC Distribution Width 29.4 % (11.5-14.5); Schistocytes SLIGHT = 2-5 cells (100X) (0-1/hpf); Target Cells SLIGHT = 2-5 cells (100X) (0-1/hpf); White Blood Cell (WBC) Count 4.7 thou/uL (4.8-10.8)
--- NOTE | 2018-10-07 13:05 | CT ---
CT ABDOMEN AND PELVIS WITH IV CONTRAST: INDICATIONS: History of severe abdominal pain and distention, as well as foot swelling. COMPARISON: Recent CT of the abdomen from 09/23/2014. FINDINGS: There is worsening small right pleural effusion with right basilar atelectasis. There is worsening a scites within the abdomen and pelvis. The gallbladder is surgically absent. There is a heterogeneous appearance of the liver, which may re flect sequela of underlying liver disease. The spleen measures 11.8 cm. The pancreas and adrenal gl ands are normal appearing. The kidneys are normal appearing. There are shotty appearing lymph nodes within the upper retroperitoneum. The small bowel is normal caliber. There is a normal appendix in the right lower quadrant of the abd omen. The colon demonstrates no definite acute abnormality. There are a few scattered colonic diver ticula. The bladder is largely decompressed. The visualized uterus and adnexa are unremarkable. There is scattered degenerative and osteoarthritic change. IMPRESSION: 1. Worsening small right pleural effusion and moderate ascites. 2. Heterogeneous appearance of the liver, suspicious for underlying chronic liver disease. 3. Cholecystectomy. 4. Colonic diverticulosis. POS: [facility]
== END 2018-10-07 13:33 | disposition home or self-care (01) ==
LOC: ERS 10:29
DX: N39.0 Urinary tract infection, site not specified (principal); R18.8 Other ascites; I10 Essential (primary) hypertension
CPT/HCPCS: 36415; 74177; 80053; 81003; 81015; 82140; 83690; 83880; 84484; 84703; 85025; 85610; 85730; 93005

== ENCOUNTER 2018-10-18 00:06 | Inpatient (IN) | payer OTHER ==
[2018-10-18 01:02] LABS: Hemoglobin 12.1 g/dL (12.0-16.0); Mean Corpuscular Hemoglobin 29.8 pg (27.0-31.0); Mean Corpuscular Volume 93.1 fL (78.0-98.0); RBC Distribution Width 27.6 % (11.5-14.5); Red Blood Cell (RBC) Count 4.07 mill/uL (4.20-5.40); White Blood Cell (WBC) Count 5.7 thou/uL (4.8-10.8)
[2018-10-18 01:08] LABS: INR-International Normal Ratio 1.9; PTT 39.5 SEC (22.9-36.1); Prothrombin Time 22.2 SEC (12.0-14.7)
[2018-10-18 01:18] LABS: #Basophils 0.1 thou/uL (0.0-0.2); #Eosinphils 0.4 thou/uL (0.0-0.7); #Lymphocytes 2.2 thou/uL (1.20-3.40); #Monocytes 0.5 thou/uL (0.11-0.59); #Neutrophils 2.5 thou/uL (1.40-6.50); %Eosinophils 6.8 % (0.0-10.0); %Lymphocytes 39.2 % (21.0-51.0); %Monocytes 7.8 % (0.0-10.0); %Neutrophils 44.2 % (42.0-75.0); Anisocytosis MODERATE=16-30 cells (100X) (0-5/hpf); MDiff Complete? YES; Mean Platelet Volume 7.8 fL (7.4-10.4); PLT Morphology Comment Appears Decreased; Platelet Count 104 thou/uL (130-400); Schistocytes SLIGHT = 2-5 cells (100X) (0-1/hpf); Target Cells SLIGHT = 2-5 cells (100X) (0-1/hpf)
[2018-10-18 01:23] LABS: ALT (SGPT) 148 U/L (8-55); AST (SGOT) 180 U/L (5-34); Albumin 2.4 g/dL (3.5-5.0); Alkaline Phosphatase 207 U/L (40-150); Anion Gap 6 mmol/L (10-20); BUN (Urea Nitrogen) 5 mg/dL (7.0-18.7); Bilirubin, Total 4.5 mg/dL (0.2-1.2); CK (CPK) 150 U/L (29-168); Calc. Creatinine Clearance 0 mL/min (70-130); Calcium 8.1 mg/dL (7.8-10.44); Carbon Dioxide 28 mmol/L (22-29); Chloride 108 mmol/L (98-107); Estimated GFR-MDRD 78; Globulin 3.5 g/dL (2.4-3.5); Glucose 97 mg/dL (70-105); Lipase 60 U/L (8-78); Potassium 3.4 mmol/L (3.5-5.1); Protein, Total 5.9 g/dL (6.0-8.3); Sodium 139 mmol/L (136-145)
[2018-10-18] MEDS ORDERED: Morphine 4 MG/ML VIAL ONE (01:33)
[2018-10-18 03:28] VITALS: BMI 33.3
[2018-10-18] MEDS ORDERED: Morphine 4 MG/ML VIAL SLOW IVP PRN (03:31)
[2018-10-18] MEDS ORDERED: Sodium Chloride 0.9% 1,000 ML IV SCH (03:32)
[2018-10-18] MEDS ORDERED: Ondansetron ODT 4 MG TAB SL PRN (03:32)
[2018-10-18] MEDS: Morphine 2 MG/ML SYRINGE SLOW IVP PRN ×2 (04:14→08:24)
[2018-10-18] MEDS: Ondansetron PF 4 MG/2 ML Vial IVP PRN (08:37)
--- NOTE | 2018-10-18 08:56 | RAD ---
SINGLE VIEW OF THE CHEST: Comparison: 10-01-18 History: Abdominal pain and distention. Shortness of breath. FINDINGS: Single view of the chest shows a normal sized cardiomediastinal silhouette. There is no evidence of c onsolidation, mass, or pleural effusion. The bones are unremarkable. IMPRESSION: No evidence of acute cardiopulmonary disease. POS: [facility]
--- NOTE | 2018-10-18 11:57 | HP ---
DATE OF ADMISSION: 10/18/2018 TIME OF SERVICE: 07:45. PRIMARY CARE PHYSICIAN: [facility]. CHIEF COMPLAINT: Abdominal pain. HISTORY OF PRESENT ILLNESS: Ms. Galvan is a 42-year-old Latin-[place] female known to me from [facility] admission. She was here from 09/23/2018-10/03/2018 for acute hepatitis, thought to be drug induce d. She had elevated LFTs, bilirubin and INR at that time. She was placed on lactulose for hepatic e ncephalopathy and improved and was discharged on 10/03/2018 back to the long term system off of lactulos e per GI recommendations. The patient has been doing well for the last 2 weeks or so. Yesterday, sh cheryl developed increasing abdominal pain, worse than before, and had noted increased abdominal girth ove r the last week or so. She was sent to our emergency department again for evaluation, here she was f ound to have elevated LFTs that was somewhat improved. White blood cell count was normal, platelets were 104,000. INR was 1.9 and lipase was 60. Her ammonia level was 77. We were subsequently called for admission. The patient was accepted by the journalism instructor, held overnight, and I completed the admission this mornin g The patient does complain of abdominal pain diffusely, which she describes as a dull aching pain. No diarrhea, no GI bleeding. No difficulty breathing. No nausea or vomiting. PAST MEDICAL HISTORY: 1. Seizure disorder. 2. Hypertension, essential. 3. Irritable bowel syndrome. 4. Uterine enlargement. 5. Post-traumatic stress disorder. 6. Acute hepatitis as above. PAST SURGICAL HISTORY: Includes cholecystectomy in the past. HOME MEDICATIONS: None. ALLERGIES: NKDA. FAMILY HISTORY: Negative for clotting or bleeding disorders. No immune dysfunction, no autoimmune d isorders. SOCIAL HISTORY: Negative for habits x3. She is currently incarcerated in the [facility]. REVIEW OF SYSTEMS: All systems reviewed and negative except stated as above. PHYSICAL EXAMINATION: VITAL SIGNS: Temperature 97.4, pulse 61, blood pressure 154/92, respiratory rate 18, satting 97% on room air. GENERAL: She is awake, she is alert, she is oriented x3. She is a well-developed, obese Latin-Ameri can female patient in no acute distress. HEENT: Normocephalic, atraumatic. Pupils equal, round, react to light bilaterally. She has bilater al scleral icterus. Mucous membranes are moist. She has no visible lesions and no thrush. NECK: Supple. There is no lymphadenopathy, no JVD, no thyromegaly. She has no carotid upstroke. T here are no bruits. LUNGS: Clear to auscultation bilaterally. She has no wheezing, no rales, no rhonchi. She has some faint tones of the base with some bibasilar crackles that do not clear with deep inspiration. ABDOMEN: Obese. It is distended and tympanitic. She does have shifting dullness and fluid wave pre sent. EXTREMITIES: No cyanosis, no clubbing. She has got 1+ edema. SKIN: Jaundiced. There are no other rashes or lesions. MUSCULOSKELETAL EXAM: Normal to inspection. Large joints appear normal. There is no evidence of an y inflammation or palpable effusions. NEUROLOGIC EXAM: Cranial nerves II-XII are grossly intact. She has no focal deficits. Normal speec h and 5/5 strength. She is somewhat sleepy, but arousable and oriented. LABORATORY DATA: Sodium 134, potassium 3.4, chloride 108, bicarbonate 28, BUN 5, creatinine 0.80, gl ucose 93, calcium 8.1. Alkaline phosphatase elevated at 207, AST 180, ALT 148, total bilirubin is 4.5 with a direct bilirubi n of 2.9, total protein 5.9, albumin 2.4. CBC showed a white count of 5.7, hemoglobin is 12.1, hematocrit of 37.9, platelet count 104,000. INR is 1.9. Ammonia level 77 and lipase of 60. RADIOGRAPHIC STUDIES: None. She was seen on 10/07/[address] scan of the abdomen done that s howed moderate ascites present. ASSESSMENT AND PLAN: 1. Abdominal pain, simply could be related to ascites. GI has been consulted. Liver functions over all are improved and bilirubin is stable. We still have a good reason why she has got this acute hep atitis. She has been off all drugs for the last 2 weeks and still has elevated LFTs. We will defer to GI for need for liver biopsy. Currently, her INR is 1.9, which makes it more difficult. 2. History of seizure disorder. 3. Hypertension, essential, currently controlled. 4. Irritable bowel syndrome. 5. Post-traumatic stress disorder. The patient was placed in inpatient status. I expect her to be here more than 2 midnights.
[2018-10-18] MEDS ORDERED: Sodium Bicarbonate 2.5 MEQ/5 ML VIAL ONE (14:47)
[2018-10-18] MEDS ORDERED: Lidocaine 1% PF 5 ML VIAL ONE (14:47)
[2018-10-18] MEDS: Ondansetron ODT 4 MG TAB PO PRN (15:09)
[2018-10-18 17:14] LABS: BF Color Yellow; BF RBC Count - Manual 858 /cumm; BF WBC/Nonhematics Ct. - Manua 64 /cumm; Body Fluid Source PARACENTESIS FLD; Clarity Hazy (Clear); Tube # EDTA
[2018-10-18 17:21] LABS: BF Segmented Neutrophils 3 %; Cell Count Non Hematic 62 %; Lymphocytes 35 %
--- NOTE | 2018-10-18 18:19 | ULT ---
ULTRASOUND GUIDED PARACENTESIS: 10/18/18 HISTORY: Spontaneous bacterial peritonitis. COMPARISON: None. FINDINGS: Successful ultrasound guided paracentesis. A total of 10 mL of yellow color ascites was aspirated. Patrick niesha tolerated the procedure well. No immediate or postprocedure complication. TECHNIQUE: Consent obtained to perform an ultrasound guided paracentesis. The patient's abdomen was evaluated. T he midline of the pelvis had the most fluid. 1% lidocaine, buffered with sodium bicarbonate was used for local anesthesia. Under fluoroscopic guidance, a 22 gauge spinal needle was advanced into the per itoneum. 10 mL of ascites was aspirated. Patient tolerated the procedure well. No immediate or postpr ocedure complication. IMPRESSION: Successful ultrasound guided paracentesis. POS: [facility]
[2018-10-18] MEDS ORDERED: traMADol HCl 50 MG TAB PO PRN (18:32)
[2018-10-18] MEDS: Famotidine/PF 20 mg/2ml Vial SLOW IVP SCH (19:45)
[2018-10-18] MEDS: traMADol HCl 50 MG TAB PO PRN (23:44)
[2018-10-19] MEDS: Ondansetron PF 4 MG/2 ML Vial IVP PRN ×3 (00:14→14:47)
[2018-10-19 05:24] LABS: ALT (SGPT) 115 U/L (8-55); AST (SGOT) 122 U/L (5-34); Albumin 2.1 g/dL (3.5-5.0); Alkaline Phosphatase 159 U/L (40-150); Anion Gap 6 mmol/L (10-20); BUN (Urea Nitrogen) 6 mg/dL (7.0-18.7); Bilirubin, Total 4.1 mg/dL (0.2-1.2); Calc. Creatinine Clearance 123 mL/min (70-130); Calcium 8.3 mg/dL (7.8-10.44); Carbon Dioxide 28 mmol/L (22-29); Chloride 107 mmol/L (98-107); Estimated GFR-MDRD 77; Globulin 3.1 g/dL (2.4-3.5); Glucose 87 mg/dL (70-105); Potassium 3.9 mmol/L (3.5-5.1); Protein, Total 5.2 g/dL (6.0-8.3); Sodium 137 mmol/L (136-145)
[2018-10-19 05:36] LABS: #Eosinphils 0.2 thou/uL (0.0-0.7); #Lymphocytes 1.9 thou/uL (1.20-3.40); #Monocytes 0.5 thou/uL (0.11-0.59); #Neutrophils 3.4 thou/uL (1.40-6.50); %Basophils 0.8 % (0.0-1.0); %Eosinophils 3.7 % (0.0-10.0); %Monocytes 7.6 % (0.0-10.0); Hemoglobin 11.5 g/dL (12.0-16.0); Mean Corpuscular HGB CONC 32.1 g/dL (32.0-36.0); Mean Corpuscular Hemoglobin 30.4 pg (27.0-31.0); Mean Corpuscular Volume 94.5 fL (78.0-98.0); Mean Platelet Volume 6.2 fL (7.4-10.4); Platelet Count 101 thou/uL (130-400); Red Blood Cell (RBC) Count 3.79 mill/uL (4.20-5.40); White Blood Cell (WBC) Count 6.1 thou/uL (4.8-10.8)
--- NOTE | 2018-10-19 08:00 | CON ---
DATE OF CONSULTATION: 10/18/2018 REQUESTING PHYSICIAN: Dr. Evangelist Pelayo REASON FOR CONSULTATION: Hepatitis and ascites. HISTORY OF PRESENT ILLNESS: Briana Galvan is a 42-year-old woman whom I met during her hospitalizat ion earlier this month when she had presented with acute hepatitis and hepatic encephalopathy. Bairon luna see my consultation note from 09/24/2018 for further details of that history. Briefly, she had pre sented with altered mental status, jaundice and elevated LFTs. This was all acute in the context of incarceration with no drug or alcohol abuse. She had recently been started on a statin and on Tegret ol and this was thought to possibly represent drug related liver injury. Abdominal ultrasound and CT imaging demonstrated only a small amount of intraperitoneal fluid at that time. Otherwise normal fi ndings. She improved on lactulose. Her Tegretol and statins were held. LFTs did start to downtrend . INR peaked at 2.2 and was down trending and she was able to be discharged from the hospital after lab workup and a liver biopsy appeared most consistent with drug-induced liver injury. Note that she had a negative CORBY and normal total IgG level and liver biopsy demonstrated severe active hepatitis with a pattern most consistent with drug-induced liver injury. The patient states she was doing okay, getting along without much significant abdominal discomfort ov er the past couple of weeks, but then yesterday about 8:00 p.m. She somewhat acutely started having generalized abdominal pain throughout the abdomen and radiating into her back. There is no significa nt nausea or vomiting with this. No fever. She was unable to get out of bed this morning due to the pain and that is why she was brought back to the hospital. Laboratory studies demonstrate transamin ases have actually improved somewhat. Her bilirubin and INR remains elevated, but stable. Abdominal CT scan from 11 days ago did demonstrate worsening ascites at that time and her abdomen is distended now REVIEW OF SYSTEMS: Full review of systems including constitutional, head, eyes, ears, nose, throat, GI, , cardiovascular, respiratory, musculoskeletal, and neurologic systems is negative except as no yessica in the HPI. PAST MEDICAL HISTORY: Hyperlipidemia, hypertension, IBS, seizure disorder, abnormal uterine bleeding , iron deficiency anemia. Acute hepatitis, secondary to drug induced liver injury, 09/2018, demonstr ated on liver biopsy. ALLERGIES: No known drug allergies. OUTPATIENT MEDICATIONS: None. FAMILY HISTORY: Negative for liver disease. SOCIAL HISTORY: No smoking, alcohol, or drug use. She is currently incarcerated. PHYSICAL EXAMINATION: VITAL SIGNS: Temperature 97.6, pulse 70, blood pressure 124/78, 94% oxygen saturation on room air. GENERAL: A 42-year-old woman lying in bed comfortably, in mild distress from abdominal pain. EYES: Mild scleral icterus. Extraocular movements intact. SKIN: Mild jaundice, no rashes were palpable. ENT: Mucous membranes moist, no oral lesions. LYMPH: No submandibular, supraclavicular lymphadenopathy. THYROID: Nontender to palpation. HEART: Regular rate and rhythm. LUNGS: Clear to auscultation bilaterally. ABDOMEN: Mild distention. Dull to percussion. Bowel sounds are present. Diffuse tenderness to pal pation with no guarding. Some mild rebound tenderness. EXTREMITIES: No peripheral edema. VESSELS: Radial pulses 2+ bilaterally. NEUROLOGICAL: Cranial nerves II-XII intact bilaterally. No focal deficits. LABORATORY STUDIES: WBC 5.7, hemoglobin 12.1, platelets 104. INR 1.9, which is stable from recent h ospitalization. Sodium 139, potassium 3.4, BUN 5, creatinine 0.80. Total bilirubin 4.5, direct bili diaz 2.9, alkaline phosphatase 207, AST 180, ALT 148. Overall, LFTs are improved from prior hospita lization. Ammonia is up to 77, albumin 2.4, lipase 60. ASSESSMENT AND PLAN: 1. Acute hepatitis, likely secondary to drug induced liver injury, based on liver biopsy earlier thi s month. 2. Ascites. The patient's transaminases have actually been improving over the past couple of weeks. Expect the bilirubin improvement to lag behind the transaminases improvement with resolving drug-in duced liver injury. The INR is stable though it continues to be elevated. What is worse, is the deg ree of ascites seen on her more recent CT scan and on clinical exam today. Given the acute worsening of abdominal pain, we need to perform a diagnostic paracentesis to rule out SBP. This would be her index paracentesis, obtain fluid, albumin Gram stain cultures, cell count and differential. We will await fluid results. If the patient does have SBP, treat accordingly. If the fluid is negative for SBP, I may want to trial her on prednisone for a few days just to see if her LFTs respond to this, gi pato that there is some degree of non-specificity to the liver biopsy findings. Thank you for the consultation. GI will follow along.
[2018-10-19] MEDS: Famotidine/PF 20 mg/2ml Vial SLOW IVP SCH ×2 (08:14→21:12)
[2018-10-19] MEDS: traMADol HCl 50 MG TAB PO PRN ×3 (08:15→21:12)
--- NOTE | 2018-10-19 12:47 | PDOC.PN ---
- Subjective Encounter Start Date: 10/19/18 Encounter Start Time: 10:00 follow up for subacute hepatitis, new ascites, abd pain, hepatic encephalopathy Pt with less pain, no f/;C, no N/V/D/c. much more awake earlier, now sleepy. diagnostic paracentesis done last evening, neg for infection All systems reviewed and neg x as above - Objective MAR Reviewed: Yes Vital Signs & Weight: Vital Signs (12 hours) Temp Pulse Resp BP BP Pulse Ox 10/19/18 11:00 97.4 F L 57 L 14 144/87 H 93 L 10/19/18 07:46 97.8 F 55 L 18 127/84 94 L 10/19/18 03:53 98.5 F 57 L 18 115/74 97 Weight Weight 194 lb 3 oz I&O: 10/18/18 10/19/18 10/20/18 06:59 06:59 06:59 Intake Total 465 Balance 465 Result Diagrams: 10/19/18 04:54 10/19/18 04:54 Phys Exam - Physical Examination Constitutional: NAD HEENT: PERRLA, moist MMs, TM's clear, oral pharynx no lesions Neck: no nodes, no JVD, supple, full ROM Respiratory: no wheezing, no rales, no rhonchi, clear to auscultation bilateral Cardiovascular: RRR, no significant murmur, no rub Gastrointestinal: soft, no distention, positive bowel sounds +fluid Musculoskeletal: edema present Neurological: non-focal, normal sensation, moves all 4 limbs Lymphatic: no nodes Psychiatric: normal affect, A&O x 3 Skin: no rash, normal turgor, cap refill <2 seconds Dx/Plan (1) Ascites Code(s): R18.8 - OTHER ASCITES Status: Acute Qualifiers: Ascites type: other type Qualified Code(s): R18.8 - Other ascites (2) Acute hepatitis Code(s): B17.9 - ACUTE VIRAL HEPATITIS, UNSPECIFIED Status: Acute Comment: workup in progress. (3) Hepatic encephalopathy Code(s): K72.90 - HEPATIC FAILURE, UNSPECIFIED WITHOUT COMA Status: Acute Comment: continue lactulose (4) Dyslipidemia Code(s): E78.5 - HYPERLIPIDEMIA, UNSPECIFIED Status: Chronic Comment: statin on hold (5) HTN (hypertension) Code(s): I10 - ESSENTIAL (PRIMARY) HYPERTENSION Status: Chronic Qualifiers: Hypertension type: essential hypertension Qualified Code(s): I10 - Essential (primary) hypertension Comment: controlled (6) Seizure disorder Code(s): G40.909 - EPILEPSY, UNSP, NOT INTRACTABLE, WITHOUT STATUS EPILEPTICUS Status: Chronic - Plan cont current plan of care, PT/OT, social media strategist, out of bed/ambulate * .
[2018-10-19 16:58] LABS: Bilirubin Moderate (Negative); Blood, Urine Negative (Negative); Clarity CLEAR (Clear); Glucose, Urine (Dipstick) Negative (Negative); Leukocyte Small (Negative); Protein, Urine (Dipstick) Negative (Neg-Trace); Specific Gravity, Urine 1.038 (1.002-1.036)
[2018-10-19 17:00] LABS: Bacteria/HPF 1+ HPF (None Seen)
[2018-10-19 17:01] LABS: Pathc Cast-AUWi Flag 4.36 (0-2.49)
[2018-10-19 17:02] LABS: Nitrite Negative (Negative)
[2018-10-19 17:07] LABS: Crystals/HPF 2+ CA OXALATE HPF (Negative); RBC/HPF 0-3 HPF (0-3)
[2018-10-19 17:08] LABS: Hyaline Casts/LPF 4-6 HYALINE CAST LPF (0-3 Hyaline)
--- NOTE | 2018-10-19 19:41 | PRG ---
DATE OF SERVICE: 10/19/2018 SUBJECTIVE: Briana is feeling a little bit better today. She reports her upper abdominal discomfort has improved. She does have some suprapubic pain as well. She is tolerating her diet. Paracentesis fluid studies came back negative for SBP. OBJECTIVE: VITAL SIGNS: Temperature 98.4, pulse 56, blood pressure 134/81, and 94% oxygen saturation on room air. GENERAL: No acute distress. HEART: Regular rate and rhythm. LUNGS: Clear to auscultation bilaterally. ABDOMEN: Mild distention, dull to percussion. Soft. Some tenderness to palpation on the lower abdomen, but no guarding or rebound tenderness. EXTREMITIES: No peripheral edema. LABORATORY DATA: WBC 6.1, hemoglobin 11.5, and platelets 101. Sodium 137, potassium 3.9, BUN 6, and creatinine 0.81. Total bilirubin down to 4.1, AST down to 122, ALT down to 115, and alkaline phosphatase down to 159. Paracentesis fluid showed 64 wbc's, 858 rbc's, and only 3% neutrophils. Fluid albumin was 0.5 and with serum albumin of 2.1, this is consistent with a transudate. Peritoneal fluid culture showed no growth at 12 hours. ASSESSMENT AND PLAN: 1. Subacute hepatitis, LFTs are continuing to improve. 2. Liver biopsy earlier this month appeared most consistent with drug-induced liver injury. 3. Ascites. 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 Fluid is consistent with a transudate, negative for SBP. I think if her LFTs continue to improve tomorrow, it would be reasonable to start her on some low dose diuretics. I do think this ascites is going to completely resolve as her hepatitis resolves, particularly as there was no significant fibrosis seen on her recent liver biopsy. 4. Hepatic encephalopathy. She is doing better, now back on lactulose. This should probably just be continued for at least a few months even after hospital discharge. Job ID: [id number]
[2018-10-19] MEDS: Ondansetron ODT 4 MG TAB PO PRN (21:11)
[2018-10-20] MEDS: traMADol HCl 50 MG TAB PO PRN ×4 (01:36→21:09)
[2018-10-20 04:54] LABS: #Basophils 0.1 thou/uL (0.0-0.2); #Eosinphils 0.5 thou/uL (0.0-0.7); #Lymphocytes 1.9 thou/uL (1.20-3.40); #Monocytes 0.4 thou/uL (0.11-0.59); #Neutrophils 2.4 thou/uL (1.40-6.50); %Basophils 1.6 % (0.0-1.0); %Eosinophils 9.1 % (0.0-10.0); %Lymphocytes 35.3 % (21.0-51.0); %Monocytes 7.7 % (0.0-10.0); %Neutrophils 46.3 % (42.0-75.0); Hemoglobin 11.4 g/dL (12.0-16.0); Mean Corpuscular HGB CONC 32.2 g/dL (32.0-36.0); Mean Corpuscular Hemoglobin 30.8 pg (27.0-31.0); Mean Corpuscular Volume 95.4 fL (78.0-98.0); Mean Platelet Volume 7.5 fL (7.4-10.4); Platelet Count 96 thou/uL (130-400); RBC Distribution Width 26.5 % (11.5-14.5); Red Blood Cell (RBC) Count 3.72 mill/uL (4.20-5.40); White Blood Cell (WBC) Count 5.3 thou/uL (4.8-10.8)
[2018-10-20 05:03] LABS: ALT (SGPT) 106 U/L (8-55); AST (SGOT) 105 U/L (5-34); Albumin 2.1 g/dL (3.5-5.0); Alkaline Phosphatase 162 U/L (40-150); Anion Gap 8 mmol/L (10-20); BUN (Urea Nitrogen) 5 mg/dL (7.0-18.7); Bilirubin, Total 4.2 mg/dL (0.2-1.2); Calc. Creatinine Clearance 120 mL/min (70-130); Calcium 8.2 mg/dL (7.8-10.44); Carbon Dioxide 27 mmol/L (22-29); Chloride 107 mmol/L (98-107); Estimated GFR-MDRD 75; Globulin 3.2 g/dL (2.4-3.5); Glucose 87 mg/dL (70-105); Potassium 3.5 mmol/L (3.5-5.1); Protein, Total 5.3 g/dL (6.0-8.3); Sodium 138 mmol/L (136-145)
[2018-10-20] MEDS: Famotidine/PF 20 mg/2ml Vial SLOW IVP SCH ×2 (08:32→21:02)
[2018-10-20] MEDS ORDERED: Spironolactone 25 MG TAB PO SCH (11:45)
[2018-10-20] MEDS ORDERED: Furosemide 20 MG TAB PO SCH (11:45)
--- NOTE | 2018-10-20 11:56 | PRG ---
DATE OF SERVICE: 10/20/2018 SUBJECTIVE: Ms. Galvan is feeling about the same. She was able to get some sleep, is requiring tramadol still for pain control. She is tolerating her diet. OBJECTIVE: VITAL SIGNS: Temperature 98.6, pulse 54, blood pressure 149/85, and 93% oxygen saturation on room air. GENERAL: No acute distress. HEART: Regular rate and rhythm. LUNGS: Clear to auscultation bilaterally. ABDOMEN: Yjem-wa-glxjrmge abdominal distention. Bowel sounds present. Soft. Some tenderness to palpation in the lower abdomen. No guarding or rebound tenderness. EXTREMITIES: No peripheral edema. LABORATORY STUDIES: Hemoglobin 11.4, WBC 5.3, and platelets 96. Sodium 138, potassium 3.5, BUN 5, and creatinine 0.83. Total bilirubin stable at 4.2, AST slightly down to 105, ALT slightly down to 106, alkaline phosphatase 162, and ammonia 58. ASSESSMENT AND PLAN: 1. Subacute hepatitis, it appears secondary to drug-induced liver injury based on liver biopsy earlier this month, with LFTs gradually declining. This may have been due to tegretol or alternatively her statin, both of these drugs are going to be held in the future. 2. Ascites. 3. Generalized abdominal pain. Fluid studies are negative for spontaneous bacterial peritonitis. Peritoneal fluid cultures negative at 36 hours. I do expect the ascites to completely resolve as her hepatitis resolves, but I think it would be reasonable to start some low dose diuretics at this time to help speed along resolution of the ascites. We will start her on Lasix 20 mg daily and spironolactone 50 mg daily. It is going to be important on hospital discharge that she has close followup with physicians in the [facility] system, who can monitor LFTs and INR as well as renal function, and likely discontinue the diuretics when appropriate. Job ID: [id number] MTDD
[2018-10-20] MEDS: Ondansetron PF 4 MG/2 ML Vial IVP PRN (16:17)
[2018-10-21 04:28] LABS: INR-International Normal Ratio 1.9; Prothrombin Time 21.6 SEC (12.0-14.7)
[2018-10-21 04:36] LABS: ALT (SGPT) 97 U/L (8-55); AST (SGOT) 103 U/L (5-34); Albumin 2.1 g/dL (3.5-5.0); Alkaline Phosphatase 149 U/L (40-150); Anion Gap 7 mmol/L (10-20); BUN (Urea Nitrogen) 5 mg/dL (7.0-18.7); Bilirubin, Total 4.3 mg/dL (0.2-1.2); Calc. Creatinine Clearance 135 mL/min (70-130); Carbon Dioxide 26 mmol/L (22-29); Chloride 105 mmol/L (98-107); Estimated GFR-MDRD 85; Globulin 3.3 g/dL (2.4-3.5); Glucose 64 mg/dL (70-105); Potassium 3.2 mmol/L (3.5-5.1); Protein, Total 5.4 g/dL (6.0-8.3); Sodium 135 mmol/L (136-145)
[2018-10-21] MEDS: Famotidine/PF 20 mg/2ml Vial SLOW IVP SCH (07:55)
[2018-10-21] MEDS: traMADol HCl 50 MG TAB PO PRN (07:59)
[2018-10-21] MEDS ORDERED: Spironolactone 25 MG TAB PO SCH (08:00)
[2018-10-21] MEDS ORDERED: Furosemide 20 MG TAB PO SCH (09:00)
[2018-10-21 14:15] VITALS: BP 130/86; TEMP 98.3
[2018-10-21] MEDS ORDERED: Potassium Chloride 20 MEQ TAB PO SCH (14:15)
--- NOTE | 2018-10-21 15:07 | PRG ---
DATE OF SERVICE: 10/21/2018 SUBJECTIVE: Ms. Galvan is feeling about the same. Still requiring Tramadol for pain control. No nausea or vomiting. She is tolerating her diet. She got started on the diuretics. Mental status has been clear. Afebrile. OBJECTIVE: VITAL SIGNS: Temperature 98.0, pulse 64, blood pressure 144/88, and 95% oxygen saturation on room air. GENERAL: In no acute distress. HEART: Regular rate and rhythm. LUNGS: Clear to auscultation bilaterally. ABDOMEN: [id number] distention. Dull to percussion. Bowel sounds are present. Soft. Some mild tenderness to palpation in the lower abdomen. EXTREMITIES: No peripheral edema. LABORATORY DATA: INR 1.9. Sodium 135, potassium 3.2, BUN 5, and creatinine 0.74. Total bilirubin 4.3. AST down to 103, ALT down to 97, and alkaline phosphatase down to 149. Ammonia down to 58. ASSESSMENT AND PLAN: 1. Subacute hepatitis, secondary to drug-induced liver injury, will be avoiding tegretol and statins in the future. LFTs continue to trend down basically in a linear fashion from her recent hospitalization. Expect this is going to completely resolve eventually. Liver biopsy results were most consistent with drug-induced liver injury. Note, her INR is elevated to 1.9, but stable over the past several weeks. 2. Ascites. Started her on low-dose diuretics yesterday. She is going to need close followup with physicians in the [facility] following hospital discharge for monitoring of fluid status and electrolytes and discontinuation of diuretics when appropriate. I do expect the ascites will completely resolve as she has resolution of her hepatitis. 3. Hepatic encephalopathy. This seems to be well controlled as long as she is on lactulose. Continue with lactulose. Nothing further from a GI perspective at this time. GI will sign off. Dr. Camargo is covering for the GI/L[facility] Service over the weekend if there are any questions or concerns. Job ID: [id number]
== END 2018-10-21 14:48 | DRG 442 ==
LOC: ERS 00:06 → OBSVTOIN 01:51 → T4-A 01:51
PROVIDERS: ADMIT Hospitalist; ATTEND Hospitalist
PROC: 0W9G30Z Drainage of Peritoneal Cavity with Drainage Device, Percutaneous Approach (ICD-10-PCS; principal; 2018-10-18)
DX: K71.10 Toxic liver disease with hepatic necrosis, without coma (principal); R18.8 Other ascites; B17.9 Acute viral hepatitis, unspecified; I10 Essential (primary) hypertension; G40.909 Epilepsy, unspecified, not intractable, without status epilepticus; F43.10 Post-traumatic stress disorder, unspecified
CPT/HCPCS: 36415; 49083; 71045; 80053; 81003; 81015; 82042; 82140; 82248; 82550; 83690; 85025; 85060; 85610; 85730; 87070; 87205; 89051; 96374; G8978-GP-CJ; G8979-GP-CJ; G8980-GP-CJ; G8987-GO-CK; G8988-GO-CI; J2001; J2270; J2405; Q0162; S0028